=== PATIENT | female | born 1960 | race Caucasian/White ===

== ENCOUNTER 2017-06-18 18:35 | Inpatient (IN) | payer OTHER ==
[~2017-06-18] VITALS: Ht 167.6 cm; Wt 150.3 kg
--- NOTE | ~2017-06-18 | PR ---
[place], [place] PROGRESS NOTE NAME: GRECIA WANG UNIT #: [id number] ROOM: 506 DOCTOR: ELSA BETH MD BIRTHDATE: [birth year] DOS: 06/23/2017 SUBJECTIVE: The patient was seen in followup of acute kidney injury. She is doing well overall, hopeful to be discharged. White blood cell count remains elevated, but stable at 14,000. Her creatinine has come down to 1.71 and stable overall from the last couple of days. She is eating and drinking well. OBJECTIVE: VITAL SIGNS: Reviewed, 130/80, 18, 66, sat 97.4. GENERAL: Awake, alert and oriented, morbidly obese, no acute distress. LUNGS: Decreased breath sounds. ABDOMEN: Soft, nontender. EXTREMITIES: 1+ lower extremity edema. Overall stable. LABORATORY DIAGNOSTIC: Reviewed as above. ASSESSMENT AND PLAN: Acute kidney injury, likely secondary to prerenal factors and NSAID use, continue to hold all NSAIDs indefinitely, hold any DIONISIO inhibitors and ARBs for now, continue as needed Lasix upon discharge. Hold for any signs and symptoms of volume depletion. 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 Continue allopurinol for history of gout. Overall, it is okay to stay on the current dose, monitor labs as an outpatient by PCP and follow up with us in the office if there is no further improvement in renal function. She is stable for discharge from a renal standpoint. ELSA BETH MD CM:PNTRANS [phone] ELSA BETH MD 06/23/17 230 interface
--- NOTE | ~2017-06-18 | CON ---
[place], [place] REPORT OF CONSULTATION NAME: GRECIA WANG UNIT #: [id number] ROOM: [facility] DOCTOR: NATO SERRANO MD BIRTHDATE: [birth year] DOS: 06/19/2017 REASON FOR CONSULTATION: Dyspnea. HISTORY OF PRESENT ILLNESS: The patient is a 56-year-old woman who denies any previous history of heart disease. She does have a history of anxiety and panic attacks. She states that she was evaluated several years ago by Dr. Reza for panic attacks and dyspnea. Nothing was found to the patient's knowledge. There is an echocardiogram available from 07/18/2016 which showed mild left atrial enlargement, but normal left ventricular size, wall motion and systolic function, ejection fraction 60% and no valve abnormalities. The patient states that she was in her normal state of health until 3 days ago. She tripped over a rug, but denied having any significant injury. Two days ago, she noticed that she developed dyspnea, which was brand new. Just walking a short distance would make her very dyspneic. She denied any pleuritic pain, cough, orthopnea or peripheral edema. Yesterday, the dyspnea worsened and therefore she came to the Emergency Room. In the ER, she was noted to have an elevated D-dimer level. She was also noted to be in acute renal failure. Troponin levels were mildly elevated at 0.094 on admission and rising gradually to 0.208. Because of the elevation in troponin, cardiology was asked to see her. The patient denies any chest pain at this time. She denies any pleuritic pain. PAST HISTORY: Includes: 1. Congenital cataract with vision deficits. The patient states that she did undergo bilateral eye surgeries as a young child. Her vision has been restored to a degree. 2. Morbid obesity. 3. Remote history of cigarette abuse. 4. Type 2 diabetes mellitus. 5. Hypertension. 6. Gout. 7. Migraine headaches. 8. Vitamin D deficiency. 9. History of hernia repair. 10. History of tubal ligation. MEDICATIONS PRIOR TO ADMISSION: Allopurinol 300 mg daily, aspirin 81 mg daily, vitamin D3 2000 units daily, furosemide 40 mg daily, Vistaril 25 mg 2 capsules at bedtime, Meloxicam 7.5 mg daily, metformin 1000 mg at bedtime, metoprolol 50 mg at bedtime, montelukast 10 mg at bedtime, phentermine 37.5 mg daily and Topamax 200 mg at bedtime. ALLERGIES: The patient lists an allergy to CODEINE. REVIEW OF SYSTEMS: The patient denies diplopia, but states that she can only see out of one eye at a time. She does have limited vision. She mostly uses her right eye. She denies focal weakness or lightheadedness. She denies nausea [place], [place] REPORT OF CONSULTATION NAME: GRECIA WANG UNIT #: [id number] ROOM: [facility] DOCTOR: NATO SERRANO MD BIRTHDATE: [birth year] or vomiting. She denies hemoptysis or hematemesis. She denies fevers, chills, sweats or recent weight change. She denies cough. She denies any pleuritic pain. She does have dyspnea as noted above. She denies any change in bowel or bladder habits. She denies any bleeding from the urine or stools. She has a very large abdomen, which has not changed recently. She states that she does get some mild ankle edema on occasion. She does have limited activities at home. The remainder of the review of systems is negative except as noted above. SOCIAL HISTORY: The patient has a fiance. She was a smoker, but quit many years ago. She does not consume alcohol or illegal drugs. PHYSICAL EXAMINATION: GENERAL: The patient is an overweight white female who is awake, alert and oriented. VITAL SIGNS: Pulse is 94 and regular, blood pressure is 124/78. She is afebrile. She weighs 148.3 kilograms with a body mass index of 52.8. HEENT: The patient is normocephalic, atraumatic. She does have scarring around her eyes. Her right pupil is elongated in a vertical direction. She does have vertical nystagmus bilaterally. Oral mucosa is moist. Tongue is midline. NECK: Supple. She has no jugular distention or hepatojugular reflux. Carotids are full. I heard no bruits. LUNGS: Respirations are unlabored. Her chest has decreased breath sounds at the bases. There are no wheezes or rales. She has no presacral edema or chest wall tenderness. HEART: Has a regular rhythm with distant tones. She has a fourth heart sound, but no third heart sound or murmur. The PMI is not displaced. She has no precordial heave, lift or thrill. ABDOMEN: Obese, but otherwise benign, without masses, organomegaly or bruits. EXTREMITIES: Showed 1+ edema bilaterally. She does have chronic stasis changes of the skin of her ankles. Pedal pulses are easily palpated bilaterally. She had no Homans sign and no palpable cords. I reviewed her electrocardiogram. It shows sinus rhythm with poor precordial R-wave progression and nonspecific ST and T-wave changes. No acute ST elevations were seen. IMPRESSION: 1. Acute shortness of breath, etiology to be determined. 2. Mild elevation in cardiac troponin. The pattern is not consistent with an acute myocardial event and suggests that the patient may have a noncardiac cause for the troponin elevation, such as a myocardial injury from demand ischemia or possibly from acute right heart injury. 3. Morbid obesity. 4. Diabetes. 5. Acute renal injury. PLAN: Based on her presentation, elevated D-dimer, and mild elevation in troponin, pulmonary emboli are very high on the list of differential diagnoses. The patient has been fully anticoagulated. A V/Q scan is scheduled since she did suffer an acute renal injury. Lower extremity venous ultrasound is also [place], [place] REPORT OF CONSULTATION NAME: GRECIA WANG UNIT #: [id number] ROOM: [facility] DOCTOR: NATO SERRANO MD BIRTHDATE: [birth year] pending. I will be obtaining an echocardiogram to look at right heart strain as well as left ventricular wall motion and systolic function. Further recommendations will depend upon the results of all these studies, but for now, I agree with full heparin anticoagulation. We will follow her with her other physicians. I thank the hospitalist physicians for asking our advice regarding her care. NATO SERRANO MD CM:CONSTR:REPORT OF CONSULTATION 1131 06/19/17 1223 interface
--- NOTE | ~2017-06-18 | EKG ---
[place], [place] ELECTROCARDIOGRAM REPORT NAME: GRECIA WANG UNIT #: [id number] ROOM: 506 DOCTOR: STACEY LOWE MD BIRTHDATE: [birth year] DOS: 06/18/2017 TIME: 19:17:27 RATE AND RHYTHM: Sinus rhythm at 89 beats per minute. MA interval 172 milliseconds, QRS duration 107 milliseconds, corrected QT interval 453 milliseconds. QRS axis is -33. IMPRESSION: Sinus rhythm, atrial premature complexes noted, low voltage in the precordial leads. Left axis deviation. The patient possibly has pulmonary embolism and is being treated for that. Dr. Keene recommended anticoagulation for 3 months. The patient also has poor R-wave progression. STACEY LOWE MD CM:EKGRPT:ELECTROCARDIOGRAM REPORT [id number] STACEY LOWE MD
--- NOTE | ~2017-06-18 | PR ---
[place], [place] PROGRESS NOTE NAME: GRECIA WANG [facility] #: [id number] UNIT #: [id number] ROOM: 506 DOCTOR: NATO SERRANO MD BIRTHDATE: [birth year] DOS: SUBJECTIVE: The patient was seen today at her bedside for followup of her recent dyspnea and presumed pulmonary emboli. She is a 56-year-old woman with a history of morbid obesity, who presented with acute shortness of breath. Her cardiac biomarkers were found to be mildly elevated. The pattern was not consistent with an acute myocardial event and her peak troponin was 0.208. A subsequent troponin has dropped to 0.048. She did give a history of a recent fall and did have bilateral lower extremity edema, although venous ultrasound study was negative for DVT. Her lung scan was read as low probability, but when I looked at the images that were quite abnormal with patchy uptake of the radionuclide on both ventilation and perfusion studies. I think that this study must be considered to be nondiagnostic. Clinically, she did have findings suggesting a pulmonary embolism and she improved rapidly with anticoagulation. She has been placed on Xarelto and is tolerating it well. PHYSICAL EXAMINATION: VITAL SIGNS: Today, her pulse is 86 and regular, blood pressure of 133/77. She is afebrile. NECK: Supple. She has no jugular distention. Carotids are full. LUNGS: Respirations are unlabored. Her chest is clear to auscultation and percussion. HEART: Has a regular rhythm with an S4 gallop. ABDOMEN: Obese, but otherwise benign. EXTREMITIES: Showed trace edema, improved from admission. IMPRESSION: 1. Acute shortness of breath, improving. 2. Mild elevation in cardiac troponin. 3. Morbid obesity. 4. Diabetes. 5. Acute renal injury -- improving. 6. Probable pulmonary embolism. PLAN: Based on her presentation, I think that pulmonary embolism is the most likely diagnosis and I do not believe that her ventilation perfusion lung scan rules this out. I therefore recommend that she be treated with a direct oral anticoagulant (rivaroxaban) for 3 months and then reassessed. She will be monitored in the hospital for another 48 hours and then discharge. We will see her as an outpatient several weeks after discharge. I thank Dr. Fernandez for asking our advice regarding management of this patient. [place], [place] PROGRESS NOTE NAME: GRECIA WANG UNIT #: [id number] ROOM: 506 DOCTOR: NATO SERRANO MD BIRTHDATE: [birth year] NATO SERRANO MD CM:PNTRANS [id number] NATO SERRANO MD 06/21/17 225 interface
--- NOTE | ~2017-06-18 | PR ---
[place], [place] PROGRESS NOTE NAME: GRECIA WANG UNIT #: [id number] ROOM: 506 DOCTOR: ELSA BETH MD BIRTHDATE: [birth year] DOS: 06/20/2017 NEPHROLOGY PROGRESS NOTE REASON FOR FOLLOWUP: Acute kidney injury. SUBJECTIVE: The patient is doing well. She is still drinking tea though. She is afebrile, remains in the ICU. There is consideration for pulmonary embolism, though V/Q scan was negative. They are treating her as if she did have one. OBJECTIVE: VITAL SIGNS: Temperature 97.5, pulse 90, respiratory rate 24, blood pressure 142/81, pulse ox 95% on 3 liters nasal cannula. GENERAL: She is awake, alert and oriented, no acute distress, pleasant mood and affect, morbidly obese, lying in bed comfortably. HEAD AND NECK: Sclerae are anicteric. Oropharynx is clear. Extraocular muscles are not intact. She has nystagmus and very poor acuity. LUNGS: Decreased breath sounds bilaterally. CARDIOVASCULAR: Regular rate. No audible rub. ABDOMEN: Obese, soft, nontender. EXTREMITIES: Without cyanosis or clubbing. There is trace edema present. LABORATORY DATA AND DIAGNOSTICS: INR 1.0. Troponin 0.048. White blood cell count 8.5, hemoglobin 13.7, platelets 271. Sodium 141, potassium 4.1, chloride 111, bicarbonate 23, BUN 26, creatinine 1.73, down from 1.97 and 2.10, glucose 193, calcium 8.6. Urine culture is negative preliminarily. The echo and V/Q scans were reviewed. There is a renal ultrasound which showed right kidney of 10.4 cm with a cortical thinning and echotexture increase. No hydronephrosis, no stones and no cysts. The left kidney measures only 7.3 cm, again with increased echotexture, no hydronephrosis, but a single stone located in the mid portion measuring 10 mm. There is no cyst. The bladder was partially distended. No mention of postvoid residuals otherwise. Lower extremity Dopplers were negative for DVT bilaterally. ASSESSMENT AND PLAN: Acute kidney injury. This is likely in the context of NSAID use, prerenal factors. She needs to discontinue her NSAIDs indefinitely. Her Lasix has been held. I recommend continued water intake with some lemon and citric acid, discontinuation of ice tea and oxalate rich products. She does not have any evidence of proteinuria despite her diabetes and most likely some chronic kidney disease may be a result of ischemic or nephropathy and may be perhaps a solitary functioning right kidney with her left-sided atrophy more so than the right. Continue to hold any DIONISIO inhibitors and ARBs for now. I do not think that she needs one acutely nor probably in the future. She is on allopurinol for history of gout, and if renal function is improving, the dose can continue and if not she may need a dose adjustment. Her volume and hypertension is otherwise acceptably controlled. If started on Xarelto, monitor renal function. We will follow. [place], [place] PROGRESS NOTE NAME: GRECIA WANG UNIT #: [id number] ROOM: [facility] DOCTOR: ELSA BETH MD BIRTHDATE: [birth year] ELSA BETH MD CM:PNTRANS [id number] ELSA BETH MD 06/21/17 0406 interface
--- NOTE | ~2017-06-18 | PR ---
[place], [place] PROGRESS NOTE [id number] UNIT #: [id number] ROOM: 506 DOCTOR: NATO SERRANO MD BIRTHDATE: [birth year] DOS: 06/22/2017 CARDIOLOGY FOLLOWUP SUBJECTIVE: The patient seen today at her bedside for followup of her acute dyspnea and presumed pulmonary embolism. The patient tells me that she is improving daily. She denies any chest pain. She remains on oxygen. PHYSICAL EXAMINATION: VITAL SIGNS: On exam today, her pulse is 60 and regular, blood pressure is 123/69. She is afebrile, pulse oximetry is 96%. She weighs 150.8 kg and has a body mass index of 53.6. HEENT: Normocephalic, atraumatic. Extraocular muscles are intact. Sclerae are clear. Pupils are round and reactive to light. Oral mucosa is moist. Tongue is midline. NECK: Supple. She has no jugular distention or hepatojugular reflux. LUNGS: Respirations are unlabored. Her chest is clear to auscultation and percussion. HEART: Has a regular rhythm with an S4 gallop. ABDOMEN: Soft and obese, but otherwise benign. EXTREMITIES: Show trace edema bilaterally. IMPRESSION: 1. Acute dyspnea, improved. 2. Mild elevation in cardiac troponin. This pattern is consistent with the presumed diagnosis of pulmonary embolism. 3. Morbid obesity. 4. Diabetes mellitus. 5. Acute renal injury, improving. 6. "Low probability" lung scan. My review of the lung scan shows that it is not a normal study, but has considerable abnormalities of both the ventilation and perfusion images. Given her body habitus, history of a recent fall, elevated troponin level, acute dyspnea and respiratory failure, etc., I think that the most likely diagnosis is still pulmonary embolism. Unfortunately, this cannot be confirmed, but given the gravity of diagnosis, it should be treated empirically. PLAN: I recommend that the patient be treated with an oral anticoagulant for 3 months. She should be followed closely after the anticoagulant is done, and if her symptoms recur, then lifelong anticoagulation would probably be indicated at that time. Hopefully, at that point, her renal functions would have improved to the point where we would document whether or not she truly did have pulmonary emboli. I thank Dr. Fernandez for asking our advice regarding her care. [place], [place] PROGRESS NOTE NAME: GRECIA WANG UNIT #: [id number] ROOM: 506 DOCTOR: NATO SERRANO MD BIRTHDATE: [birth year] NATO SERRANO MD CM:PNTRANS [id number] NATO SERRANO MD 06/22/17 2158 interface
--- NOTE | ~2017-06-18 | CON ---
[place], [place] REPORT OF CONSULTATION NAME: GRECIA WANG UNIT #: [id number] ROOM: [facility] DOCTOR: ELSA BETH MD BIRTHDATE: [birth year] DOS: 06/19/2017 HISTORY OF PRESENT ILLNESS: The patient is a very pleasant 56-year-old woman seen in renal consultation for acute kidney injury. She presented to the Emergency Department with a complaint of shortness of breath that had been worsening over the past 2 days, some cramping in the lower extremities. She is being ruled out for PE and DVT. She was given aspirin and DuoNeb in the ER. She has a history of congenital cataract and legally blind. She had long surgeries as a child. She has diabetes, high blood pressure, gout, migraines, vitamin D deficiency. She does not drink very much water. She was noted to have some nephrolithiasis without hydronephrosis on a CT of the chest, which extended into the kidneys. It appears that she was on metformin, Meloxicam at home along with Lasix. She is morbidly obese and does report in general doing okay and doing all of her activities of daily living on her own. She states she is feeling well right now, still is periodically short of breath. She is sitting upright in a chair in the ICU. She has been given normal saline in the Emergency Department. Her laboratories briefly when she presented showed creatinine of 2.1 and then was to 1.97 this morning. Electrolytes were unremarkable. She had an A1c fairly well controlled at 7.0. Troponin was 0.09 and has been climbing to 0.208. Cardiology has been consulted. She has vitamin D deficiency with level of 14.2. Thyroid function studies were normal. Urinalysis yesterday showed cloudy yellow urine, negative for blood, protein or nitrites, epithelial cells contaminated this, 3+ bacteria was noted. She had slight leukocytosis to 12-13,000. Hemoglobin was stable. Blood gas showed slight hypoxia. She did not seem to have lactic acid drawn. Phosphorus was slightly elevated at 5.2 as well. In review of her past laboratories, she had creatinine of 1.1, 1.2 and 1.3 respectively in September 2008, December 2013 and June 2015. She has not had a past renal ultrasound performed. REVIEW OF SYSTEMS: As per the HPI, otherwise all systems reviewed and negative. PAST MEDICAL HISTORY: As above. PAST SURGICAL HISTORY: Eye surgery, hernia repair, tubal ligation. SOCIAL HISTORY: Nonsmoker, nondrinker. She lives at home. She does drink a fair amount of and sometimes johny, former smoker. FAMILY HISTORY: Positive for the congenital cataracts, diabetes, hypertension. ALLERGIES: Reported allergy to CODEINE. HOME MEDICATIONS: Allopurinol, aspirin, vitamin D, Lasix, Vistaril, Meloxicam, metformin, Lopressor, Singulair, Adipex and Topamax. PHYSICAL EXAMINATION: VITAL SIGNS: Blood pressures are in the 100s-150s, currently 124/78, temperature is afebrile, heart rate is 94, respiratory rate 24, pulse ox 92-94% on 3 liters nasal cannula. [place], [place] REPORT OF CONSULTATION NAME: GRECIA WANG UNIT #: [id number] ROOM: [facility] DOCTOR: ELSA BETH MD BIRTHDATE: [birth year] GENERAL: She is morbidly obese, older appearing than stated age female sitting in bed. HEAD AND NECK: Sclerae are anicteric. She has a surgical pupil on the right that looks like a cat's eye and she has some nystagmus, dilated pupil slightly on the left. The acuity is poor. Hearing is grossly intact. No significant JVD, but sitting in chair. No bruits. LUNGS: Some decreased breath sounds secondary to habitus. No audible rales or wheeze. CARDIOVASCULAR: Regular rate. No audible rub. ABDOMEN: Obese, soft, nontender. No CVA tenderness. EXTREMITIES: Lower extremities have 1-2+ lower extremity edema, seems to be fairly symmetric in nature. SKIN: Without diffuse rashes or breakdowns. There are some stasis changes mildly in lower extremities. NEUROLOGIC: The gross motor function is intact and symmetric. Gross sensation appears intact as well. LABORATORY AND DIAGNOSTIC DATA: She is on a heparin drip. PTT is 98.1. Sodium 142, potassium 3.6, chloride 108, bicarb 28, BUN 29, creatinine 1.97. A1c is 7. Calcium is 8, phosphorus 5.2, magnesium 2.3. Troponin 0.208. Cholesterol 160, LDL 100, HDL 34. B12 greater than 2000 and vitamin D 14.2. Folate 12.6. TSH 2.2, free T4 1.07. Urinalysis as above, negative for protein or blood. Albumin was 3.5. AST, ALT normal. Bilirubin normal. CT of the chest showed clear lungs without consolidation, interstitial disease or suspicious nodules. The heart was normal in size without pericardial effusion. Normal lymph nodes, mild coronary calcifications. No pleural effusion, thickening or pneumothorax. Airways were patent. The gallbladder seemed to have some sludge or possible contrast. There was a 5 mm stone in the left kidney and a 3 mm stone in the right kidney without hydronephrosis, but there was some bilateral renal atrophy noted. Again, this was a dedicated chest CT, not of abdomen. Cultures are pending. ASSESSMENT AND PLAN: Acute kidney injury versus progressive chronic kidney disease. Baseline creatinine did seem to be elevated 2-5 years ago on past analyses or at least baseline of chronic kidney disease 3. The ongoing use of NSAIDs must be stopped. I believe that may be contributing to acute injury as well as progressive of chronic disease with use of Lasix as well. She does not seem to drink very much in terms of fluid, especially water. She has some chronic venous insufficiency and edema, but overall blood pressures are acceptably controlled. I would continue to hold any DIONISIO inhibitors and ARBs for now. She does not have any evidence of proteinuria despite her diabetes and most likely some chronic kidney disease is a result of ischemic nephropathy, some possible hypertensive nephrosclerosis versus other possibilities as well. Her hypertension is acceptably controlled. I will stop her IV fluids at this time. She does have mild hyperphosphatemia and vitamin D deficiency. We will replace those and monitor serial laboratories moving forward. A renal ultrasound will be done to monitor for this and she does have a history of gout and is on allopurinol. The dose may need to be reduced perhaps if renal function does not improve further. [place], [place] REPORT OF CONSULTATION NAME: GRECIA WANG UNIT #: [id number] ROOM: [facility] DOCTOR: ELSA BETH MD BIRTHDATE: [birth year] Thank you very much for the kind consultation. I will continue to follow. ELSA BETH MD CM:CONSTR:REPORT OF CONSULTATION 1212 06/19/17 1255 interface
--- NOTE | ~2017-06-18 | PR ---
[place], [place] PROGRESS NOTE NAME: GRECIA WANG UNIT #: [id number] ROOM: 506 DOCTOR: BALBIR SERRANO MD BIRTHDATE: [birth year] DOS: FAMILY PHYSICIAN: Dr. Fernandez. SUBJECTIVE: The patient presented with subsequent to a fall with sudden onset of shortness of breath. Clinical pressures appeared to be consistent with a pulmonary emboli, even though the V/Q scan was consistent with low probability. From the Cardiology point of view, the patient today appears she is sitting up in bed, does not appear in distress. She is reporting significant improvement on her shortness of breath. No chest pain, improved shortness of breath. No symptomatic palpitation. OBJECTIVE: VITAL SIGNS: The patient's blood pressure 130/80, heart rate 66, respiratory rate of 18, temperature 97.4. NECK: Good upstroke, no bruit. HEART: S1, S2 with no rub. LUNGS: Decreased air movement, but no wheezing or rales. ABDOMEN: Morbidly obese with soft, nontender, present bowel sounds. LOWER EXTREMITIES: Mild lymphedema. LABORATORY DATA: White count 14.5, hemoglobin 12.5, BUN 36, creatinine 1.7, GFR is 31 percent. ASSESSMENT AND PLAN: Status post presentation with acute shortness of breath following a fall in a patient who is morbidly obese with no complaint of chest pain and overall normal EKG. The patient's elevated troponin could be due to a possible subclinical pulmonary emboli, even though clinical pressure is completely consistent with that. The V/Q scan was reported to be low probability, even though simple preliminary reading does not appear to be consistent with that. Anyway, the patient currently on blood thinner and probably should be continued for 3 months. Any change in patient's symptoms, she was encouraged to call us back immediately. The patient can be discharged home from the cardiac point of view should there be any complaint problems. The patient is scheduled followup with Dr. Keene. [place], [place] PROGRESS NOTE NAME: GRECIA WANG UNIT #: [id number] ROOM: 506 DOCTOR: BALBIR SERRANO MD BIRTHDATE: [birth year] BALBIR SERRANO MD CM:[place] 1139 BALBIR SERRANO MD 06/23/17 1719 interface
[~2017-06-18 18:35] MED LIST: ATORVASTATIN CA10 M1 PO; BRIN20TA PO; GLUCOPHAGE500 MG PO; LASIX40 MG PO; LISINOPRIL40 MG PO; LOPRESSOR50 M1 PO; LOW DOSE ASPIRI81 MG PO; MELOXICAM7.5 MG PO; METFORMIN HCL500 MG PO; MOTRIN800 MG PO; NEURONTIN300 MG PO; PERCOCET 325 MG1 TA6 PO; TOBREX OPHTH S2.5 ML OPH; TOPAMAX100 M1 PO; TOPIRAMATE100 M2 PO
[2017-06-18 18:44] VITALS: BP 150/96
[2017-06-18 18:55] VITALS: BP 108/80
[2017-06-18 19:20] VITALS: BP 108/80
[2017-06-18 19:20] LABS: BASO # 0.1 10*3/uL (0.0-0.1); EOS # 0.7 10*3/uL (0.0-0.4); EOS % 5.7 % (1.0-4.0); HEMOGLOBIN 14.5 g/dl (12.0-16.0); LYMPH % 33.1 % (27.0-41.0); MEAN CELL VOLUME 94.1 fl (81.0-99.0); MEAN CORPUSCULAR HGB 29.7 pg (27.0-31.0); MEAN CORPUSCULAR HGB CONC 31.5 g/dl (33.0-37.0); MEAN PLATELET VOLUME 9.9 fl (9.6-12.3); MONO # 1.1 10*3/uL (0.1-1.0); MONO % 8.9 % (3.0-9.0); NEUT # 6.1 10*3/uL (2.3-7.9); PLATELET COUNT AUTOMATED 268 10*3/uL (130-400); RED BLOOD COUNT 4.89 10*6/uL (4.10-5.10); RED CELL DISTRI WIDTH 15.5 % (0-14.5)
[2017-06-18 19:37] LABS: ALBUMIN 3.5 gm/dl (3.1-4.5); BILIRUBIN, TOTAL 0.6 mg/dl (0.2-1.0); POTASSIUM 4.1 mmol/L (3.5-5.1); TOTAL PROTEIN 7.6 gm/dL (6.4-8.2)
[2017-06-18 19:42] LABS: TROPONIN I 0.094 ng/ml (<0.045)
[2017-06-18 19:49] LABS: ABG BASE EXCESS -2.2 mmol/L (-2.0-2.0); ABG CO2 CONTENT 22.6 mmol/L (23-27); ABG HCO3 21.5 mmol/l (22-26); ABG TEMPERATURE 98.8 F (98.0-99.0); ARTERIAL BLOOD GAS PH 7.397 (7.35-7.45); ARTERIAL BLOOD GAS PO2 56.6 mmHg (80-90)
[2017-06-18 19:50] LABS: INTERNATIONAL NORM RATIO 1.1 (2.0-3.5)
[2017-06-18 20:51] VITALS: BP 106/74
[2017-06-18 21:23] LABS: BILIRUBIN 1+ (NEGATIVE); BLOOD NEGATIVE (NEGATIVE); CLARITY SL CLOUDY (CLEAR); COLOR YELLOW (YELLOW); GLUCOSE NEGATIVE (NEGATIVE); KETONE NEGATIVE (NEGATIVE); LEUKO ESTERASE TRACE (NEGATIVE); NITRITE NEGATIVE (NEGATIVE); PROTEIN NEGATIVE (NEGATIVE); UROBILINOGEN 0.2 E.U./dl (0.2-1.0)
[2017-06-18 21:37] LABS: BACTERIA 3+; EPITHELIAL CELLS 16-20; URINE REFLEX COMMENT YES (NO)
[2017-06-18 22:00] VITALS: BP 137/77
[2017-06-18] MEDS ORDERED: SINGULAIR10 M1 PO (22:15)
[2017-06-18] MEDS ORDERED: VITAMIN D-32000 UNIT PO (22:15)
[2017-06-18] MEDS ORDERED: ADIPEX-P37.5 MG PO (22:16)
[2017-06-18] MEDS ORDERED: VISTARIL25 M2 PO (22:16)
[2017-06-18] MEDS ORDERED: ALLOPURINOL300 MG PO (22:17)
[2017-06-19] VITALS: BP 133/76
[2017-06-19 05:09] VITALS: BP 124/78
[2017-06-19 05:38] LABS: FREE T4 1.07 ng/dl (0.76-1.46); MAGNESIUM 2.3 mg/dL (1.5-2.1); PHOSPHOROUS 5.2 mg/dL (2.5-4.9); POTASSIUM 3.6 mmol/L (3.5-5.1)
[2017-06-19 05:45] LABS: THYROID STIM HORMONE (HS) 2.21 uIU/ml (0.358-4.75)
[2017-06-19 05:54] LABS: BASO # 0.1 10*3/uL (0.0-0.1); BASO % 0.7 % (0.0-1.0); EOS # 0.7 10*3/uL (0.0-0.4); EOS % 5.3 % (1.0-4.0); HEMATOCRIT 41.8 % (37.0-47.0); HEMOGLOBIN 13.1 g/dl (12.0-16.0); LYMPH # 4.9 10*3/uL (1.3-4.4); LYMPH % 36.5 % (27.0-41.0); MEAN CELL VOLUME 93.9 fl (81.0-99.0); MEAN CORPUSCULAR HGB 29.4 pg (27.0-31.0); MEAN CORPUSCULAR HGB CONC 31.3 g/dl (33.0-37.0); MEAN PLATELET VOLUME 10.3 fl (9.6-12.3); MONO # 1.2 10*3/uL (0.1-1.0); MONO % 9.3 % (3.0-9.0); NEUT # 6.4 10*3/uL (2.3-7.9); PLATELET COUNT AUTOMATED 249 10*3/uL (130-400); RED BLOOD COUNT 4.45 10*6/uL (4.10-5.10); RED CELL DISTRI WIDTH 15.2 % (0-14.5); WHITE BLOOD COUNT 13.4 10*3/uL (4.8-10.8)
[2017-06-19 06:30] LABS: INTERNATIONAL NORM RATIO 1.1 (2.0-3.5); PROTHROMBIN TIME 11.4 SECONDS (8.9-12.2)
[2017-06-19 07:01] LABS: FOLIC ACID 12.64 ng/mL (>5.38); VITAMIN D, 25-HYDROXY 14.2 ng/mL (30-100)
[2017-06-19 08:00] VITALS: BP 145/95
[2017-06-19 12:00] VITALS: BP 134/87
[2017-06-19 16:00] VITALS: BP 156/90
[2017-06-19 20:00] VITALS: BP 115/81
[2017-06-20] VITALS: BP 127/79
[2017-06-20 04:00] VITALS: BP 128/81
[2017-06-20 05:55] LABS: BASO % 0.4 % (0.0-1.0); HEMATOCRIT 42.4 % (37.0-47.0); HEMOGLOBIN 13.7 g/dl (12.0-16.0); LYMPH # 1.3 10*3/uL (1.3-4.4); MEAN CELL VOLUME 94.4 fl (81.0-99.0); MEAN CORPUSCULAR HGB 30.5 pg (27.0-31.0); MEAN CORPUSCULAR HGB CONC 32.3 g/dl (33.0-37.0); MEAN PLATELET VOLUME 10.2 fl (9.6-12.3); MONO # 0.1 10*3/uL (0.1-1.0); MONO % 0.6 % (3.0-9.0); NEUT # 7.1 10*3/uL (2.3-7.9); NEUT % 83.5 % (47.0-73.0); PLATELET COUNT AUTOMATED 271 10*3/uL (130-400); RED BLOOD COUNT 4.49 10*6/uL (4.10-5.10); RED CELL DISTRI WIDTH 15.6 % (0-14.5); WHITE BLOOD COUNT 8.5 10*3/uL (4.8-10.8)
[2017-06-20 06:13] LABS: POTASSIUM 4.1 mmol/L (3.5-5.1)
[2017-06-20 08:00] VITALS: BP 141/98
[2017-06-20 12:00] VITALS: BP 142/81
[2017-06-20 16:00] VITALS: BP 142/81
[2017-06-20 20:00] VITALS: BP 138/78
[2017-06-21] VITALS: BP 129/104
[2017-06-21 04:00] VITALS: BP 122/76
[2017-06-21 07:10] LABS: BASO % 0.1 % (0.0-1.0); HEMATOCRIT 41.6 % (37.0-47.0); HEMOGLOBIN 13.2 g/dl (12.0-16.0); IG # 0.1 10*3/uL (0.0-0.1); LYMPH % 13.5 % (27.0-41.0); MEAN CELL VOLUME 95.6 fl (81.0-99.0); MEAN CORPUSCULAR HGB 30.3 pg (27.0-31.0); MEAN CORPUSCULAR HGB CONC 31.7 g/dl (33.0-37.0); MEAN PLATELET VOLUME 10.2 fl (9.6-12.3); MONO # 0.5 10*3/uL (0.1-1.0); MONO % 3.2 % (3.0-9.0); NEUT # 12.4 10*3/uL (2.3-7.9); NEUT % 82.7 % (47.0-73.0); NUCLEATED RED BLOOD CELL 0.1 % (0.0-0.0); PLATELET COUNT AUTOMATED 272 10*3/uL (130-400); RED BLOOD COUNT 4.35 10*6/uL (4.10-5.10); RED CELL DISTRI WIDTH 15.6 % (0-14.5)
[2017-06-21 07:46] LABS: PHOSPHOROUS 4.3 mg/dL (2.5-4.9); POTASSIUM 4.2 mmol/L (3.5-5.1)
[2017-06-21 08:00] VITALS: BP 142/84
[2017-06-21 16:00] VITALS: BP 133/77
[2017-06-21 21:03] VITALS: BP 137/70
[2017-06-22] VITALS: BP 154/88
[2017-06-22 06:46] LABS: BASO % 0.2 % (0.0-1.0); EOS % 0.1 % (1.0-4.0); HEMOGLOBIN 12.5 g/dl (12.0-16.0); IG # 0.1 10*3/uL (0.0-0.1); LYMPH # 4.4 10*3/uL (1.3-4.4); MEAN CELL VOLUME 95.2 fl (81.0-99.0); MEAN CORPUSCULAR HGB 29.8 pg (27.0-31.0); MEAN CORPUSCULAR HGB CONC 31.3 g/dl (33.0-37.0); MEAN PLATELET VOLUME 10.3 fl (9.6-12.3); MONO # 1.2 10*3/uL (0.1-1.0); MONO % 8.4 % (3.0-9.0); NEUT % 60.8 % (47.0-73.0); PLATELET COUNT AUTOMATED 248 10*3/uL (130-400); RED CELL DISTRI WIDTH 15.9 % (0-14.5); WHITE BLOOD COUNT 14.8 10*3/uL (4.8-10.8)
[2017-06-22 08:00] VITALS: BP 123/69
[2017-06-22 16:00] VITALS: BP 128/77
[2017-06-23] VITALS: BP 132/73
[2017-06-23 06:01] LABS: HEMATOCRIT 40.8 % (37.0-47.0); HEMOGLOBIN 12.5 g/dl (12.0-16.0); MEAN CELL VOLUME 95.3 fl (81.0-99.0); MEAN CORPUSCULAR HGB 29.2 pg (27.0-31.0); MEAN CORPUSCULAR HGB CONC 30.6 g/dl (33.0-37.0); MEAN PLATELET VOLUME 10.3 fl (9.6-12.3); PLATELET COUNT AUTOMATED 252 10*3/uL (130-400); RED BLOOD COUNT 4.28 10*6/uL (4.10-5.10); RED CELL DISTRI WIDTH 15.8 % (0-14.5); WHITE BLOOD COUNT 14.5 10*3/uL (4.8-10.8)
[2017-06-23 06:10] LABS: MAGNESIUM 2.1 mg/dL (1.5-2.1); PHOSPHOROUS 5.1 mg/dL (2.5-4.9); POTASSIUM 4.1 mmol/L (3.5-5.1)
[2017-06-23 06:55] LABS: BASOPHIL # 0.1 10*3/uL (0-0.1); BASOPHILS 1 % (0-1); EOSINOPHIL # 0.3 10*3/uL (0-0.4); EOSINOPHILS 2 % (1-4); LYMPHOCYTE # 5.8 10*3/uL (1.3-4.4); MONOCYTE # 0.4 10*3/uL (0.1-1.0); NEUTROPHIL # 7.8 10*3/uL (2.3-7.9); NEUTROPHILS 54 % (47-73); PLATELET SUFFICIENCY NORMAL (NORMAL); TOTAL CELLS COUNTED 100 #CELLS
[2017-06-23 08:00] VITALS: BP 130/80
[2017-06-23] MEDS ORDERED: OXYGEN NAS (12:06)
[2017-06-23] MEDS ORDERED: XARE15TA PO (14:41)
[2017-06-23] MEDS ORDERED: GLUCOTROL5 MG PO (14:41)
[2017-06-23] MEDS ORDERED: XARE20MG PO (14:42)
== END 2017-06-23 16:10 | disposition home or self-care (01) | DRG 682 ==
LOC: ED 18:35 → EDHOLD 21:03 → 5E 21:03 → ICCU 21:03 → 5E 06-20 16:41
PROVIDERS: Family Medicine; Internal Medicine; Internal Medicine Nephrology; Physician Assistant
DX: N17.0 Acute kidney failure with tubular necrosis (principal); J96.01 Acute respiratory failure with hypoxia; I26.99 Other pulmonary embolism without acute cor pulmonale; I82.4Y9 Acute embolism and thrombosis of unspecified deep veins of unspecified proximal lower extremity; R65.10 Systemic inflammatory response syndrome (SIRS) of non-infectious origin without acute organ dysfunction; E11.65 Type 2 diabetes mellitus with hyperglycemia; I24.8 Other forms of acute ischemic heart disease; Z68.43 Body mass index [BMI] 50.0-59.9, adult; E87.8 Other disorders of electrolyte and fluid balance, not elsewhere classified; E66.01 Morbid (severe) obesity due to excess calories; N26.1 Atrophy of kidney (terminal); M1A.9XX0 Chronic gout, unspecified, without tophus (tophi); N20.0 Calculus of kidney; R82.71 Bacteriuria; E55.9 Vitamin D deficiency, unspecified; K80.80 Other cholelithiasis without obstruction; I10 Essential (primary) hypertension; G47.30 Sleep apnea, unspecified; G43.909 Migraine, unspecified, not intractable, without status migrainosus; I87.2 Venous insufficiency (chronic) (peripheral); Z88.6 Allergy status to analgesic agent; Z98.51 Tubal ligation status; Z82.49 Family history of ischemic heart disease and other diseases of the circulatory system; Z83.3 Family history of diabetes mellitus; Z80.9 Family history of malignant neoplasm, unspecified; Z87.891 Personal history of nicotine dependence; Z79.82 Long term (current) use of aspirin; Z79.84 Long term (current) use of oral hypoglycemic drugs; Z79.899 Other long term (current) drug therapy; Z91.81 History of falling

== ENCOUNTER → 2017-08-30 | Outpatient (CLI) | payer OTHER ==
[~2017-08-30] MED LIST changes: +ADIPEX-P37.5 MG PO; +ALLOPURINOL300 MG PO; +GLUCOTROL5 MG PO; +OXYGEN NAS; +SINGULAIR10 M1 PO; +VISTARIL25 M2 PO; +VITAMIN D-32000 UNIT PO; +XARE15TA PO; +XARE20MG PO
[2017-08-30 13:57] LABS: ALBUMIN 3.1 gm/dl (3.1-4.5); CREATININE 1.9 mg/dL (0.55-1.02); PHOSPHOROUS 3.9 mg/dL (2.5-4.9); POTASSIUM 3.5 mmol/L (3.5-5.1); URIC ACID 6.5 mg/dL (2.6-6.0)
== END | disposition home or self-care (01) ==
LOC: LAB 12:25
PROVIDERS: Internal Medicine
DX: N18.9 Chronic kidney disease, unspecified (principal); M10.9 Gout, unspecified

== ENCOUNTER → 2017-12-16 | Outpatient (CLI) | payer OTHER | END | disposition home or self-care (01) | LOC: LAB 15:52 | DX: J06.9 Acute upper respiratory infection, unspecified (principal) ==

== ENCOUNTER → 2017-12-27 | Outpatient (CLI) | payer OTHER ==
[2017-12-27 12:27] LABS: BILIRUBIN NEGATIVE (NEGATIVE); BLOOD NEGATIVE (NEGATIVE); CLARITY SL CLOUDY (CLEAR); COLOR YELLOW (YELLOW); GLUCOSE NEGATIVE (NEGATIVE); KETONE NEGATIVE (NEGATIVE); LEUKO ESTERASE NEGATIVE (NEGATIVE); NITRITE NEGATIVE (NEGATIVE); SPECIFIC GRAVITY 1.015 (1.005-1.030); UROBILINOGEN 0.2 E.U./dl (0.2-1.0)
[2017-12-27 12:28] LABS: BASO # 0.1 10*3/uL (0.0-0.1); BASO % 0.8 % (0.0-1.0); EOS # 0.5 10*3/uL (0.0-0.4); EOS % 4.2 % (1.0-4.0); HEMATOCRIT 43.6 % (37.0-47.0); HEMOGLOBIN 13.7 g/dl (12.0-16.0); LYMPH # 4.5 10*3/uL (1.3-4.4); LYMPH % 37.9 % (27.0-41.0); MEAN CELL VOLUME 95.4 fl (81.0-99.0); MEAN CORPUSCULAR HGB CONC 31.4 g/dl (33.0-37.0); MEAN PLATELET VOLUME 9.6 fl (9.6-12.3); MONO % 8.9 % (3.0-9.0); NEUT # 5.6 10*3/uL (2.3-7.9); NEUT % 47.9 % (47.0-73.0); PLATELET COUNT AUTOMATED 360 10*3/uL (130-400); RED BLOOD COUNT 4.57 10*6/uL (4.10-5.10); RED CELL DISTRI WIDTH 15.2 % (0-14.5); WHITE BLOOD COUNT 11.7 10*3/uL (4.8-10.8)
[2017-12-27 12:42] LABS: BACTERIA 1+; EPITHELIAL CELLS 25-30; HYALINE CAST 16-20
[2017-12-27 12:53] LABS: ALBUMIN 3.1 gm/dl (3.1-4.5); CREATININE 1.67 mg/dL (0.55-1.02); PHOSPHOROUS 2.6 mg/dL (2.5-4.9); POTASSIUM 3.9 mmol/L (3.5-5.1)
[2017-12-27 13:35] LABS: VITAMIN D, 25-HYDROXY 19.7 ng/mL (30-100)
[2017-12-27 13:36] LABS: FERRITIN 158.2 ng/mL (10.0-291.0); PTH INTACT 201.8 pg/mL (14.0-72.0)
== END | disposition home or self-care (01) ==
LOC: LAB 11:45
PROVIDERS: Internal Medicine Nephrology
DX: N18.3 Chronic kidney disease, stage 3 (moderate) (principal); D63.1 Anemia in chronic kidney disease; N25.81 Secondary hyperparathyroidism of renal origin

== ENCOUNTER → 2018-06-25 | Outpatient (CLI) | payer OTHER ==
[2018-06-25 16:38] LABS: BASO # 0.1 10*3/uL (0.0-0.1); BASO % 0.7 % (0.0-1.0); EOS # 0.3 10*3/uL (0.0-0.4); EOS % 2.1 % (1.0-4.0); HEMATOCRIT 46.3 % (37.0-47.0); HEMOGLOBIN 14.4 g/dl (12.0-16.0); LYMPH # 4.5 10*3/uL (1.3-4.4); LYMPH % 36.6 % (27.0-41.0); MEAN CELL VOLUME 96.1 fl (81.0-99.0); MEAN CORPUSCULAR HGB 29.9 pg (27.0-31.0); MEAN CORPUSCULAR HGB CONC 31.1 g/dl (33.0-37.0); MEAN PLATELET VOLUME 10.5 fl (9.6-12.3); MONO # 0.9 10*3/uL (0.1-1.0); MONO % 7.5 % (3.0-9.0); NEUT # 6.5 10*3/uL (2.3-7.9); NEUT % 52.9 % (47.0-73.0); PLATELET COUNT AUTOMATED 255 10*3/uL (130-400); RED BLOOD COUNT 4.82 10*6/uL (4.10-5.10); RED CELL DISTRI WIDTH 15.2 % (0-14.5); WHITE BLOOD COUNT 12.4 10*3/uL (4.8-10.8)
[2018-06-25 16:41] LABS: BILIRUBIN NEGATIVE (NEGATIVE); BLOOD NEGATIVE (NEGATIVE); CLARITY SL CLOUDY (CLEAR); COLOR YELLOW (YELLOW); GLUCOSE NEGATIVE (NEGATIVE); KETONE NEGATIVE (NEGATIVE); LEUKO ESTERASE NEGATIVE (NEGATIVE); NITRITE NEGATIVE (NEGATIVE); UROBILINOGEN 0.2 E.U./dl (0.2-1.0)
[2018-06-25 17:11] LABS: ALBUMIN 3.4 gm/dl (3.1-4.5); CREATININE 1.63 mg/dL (0.55-1.02); PHOSPHOROUS 3.6 mg/dL (2.5-4.9); POTASSIUM 3.5 mmol/L (3.5-5.1)
[2018-06-25 17:15] LABS: BACTERIA 3+; EPITHELIAL CELLS 41-50; WBC 0-2 wbc/hpf (0-5)
[2018-06-25 18:37] LABS: FERRITIN 92.9 ng/mL (10.0-291.0); VITAMIN D, 25-HYDROXY 29.2 ng/mL (30-100)
== END | disposition home or self-care (01) ==
LOC: LAB 16:09
PROVIDERS: Internal Medicine Nephrology
DX: D63.1 Anemia in chronic kidney disease (principal); N25.81 Secondary hyperparathyroidism of renal origin; N18.3 Chronic kidney disease, stage 3 (moderate)

== ENCOUNTER → 2019-01-25 | Outpatient (CLI) | payer OTHER | END | disposition home or self-care (01) | LOC: US 09:34 | DX: R13.10 Dysphagia, unspecified (principal); R22.1 Localized swelling, mass and lump, neck ==

== ENCOUNTER → 2019-03-10 | Outpatient (CLI) | payer OTHER ==
[2019-03-10 09:16] LABS: CREATININE 1.6 mg/dL (0.55-1.02)
== END | disposition home or self-care (01) ==
LOC: CT 01:24 → LAB 01:24 → CT 09:00
PROVIDERS: Radiology Diagnostic Radiology
DX: K80.80 Other cholelithiasis without obstruction (principal)

== ENCOUNTER → 2019-07-07 | Outpatient (CLI) | payer OTHER | END | disposition home or self-care (01) | LOC: CARD 01:44 | DX: R94.31 Abnormal electrocardiogram [ECG] [EKG] (principal); I51.7 Cardiomegaly ==

== ENCOUNTER 2019-12-21 18:28 | Inpatient (IN) | payer OTHER ==
[~2019-12-21] VITALS: Ht 167.6 cm; Wt 162.4 kg
[2019-12-21 18:49] VITALS: BP 117/42
[2019-12-21 20:06] LABS: MEAN CELL VOLUME 75.8 fl (81.0-99.0); MEAN CORPUSCULAR HGB CONC 26.4 g/dl (33.0-37.0); MEAN PLATELET VOLUME 8.7 fl (9.6-12.3); NUCLEATED RED BLOOD CELL 0.2 % (0.0-0.0); PLATELET COUNT AUTOMATED 592 10*3/uL (130-400); RED CELL DISTRI WIDTH 19.1 % (0-14.5); WHITE BLOOD COUNT 13.4 10*3/uL (4.8-10.8)
[2019-12-21 20:07] LABS: HEMOGLOBIN 6.6 g/dl (12.0-16.0)
[2019-12-21 20:11] LABS: ACT PARTIAL THROMBO TIME 28.1 SECONDS (20.0-32.1); INTERNATIONAL NORM RATIO 1.1 (2.0-3.5)
[2019-12-21 20:13] LABS: ALBUMIN 2.9 gm/dl (3.1-4.5); ALKALINE PHOSPHATASE 137 U/L (45-117); BUN 15 mg/dl (7-24); CHLORIDE 105 mmol/L (98-107); CREATININE 1.62 mg/dL (0.55-1.02); LIPASE 86 U/L (73-393); POTASSIUM 4.3 mmol/L (3.5-5.1); SGOT/AST 23 IU/L (3-35); SGPT/ALT 18 U/L (12-78); SODIUM 140 mmol/L (136-145); TOTAL PROTEIN 7.4 gm/dL (6.4-8.2)
[2019-12-21 20:14] LABS: TROPONIN I < 0.015 ng/ml (<0.045)
[2019-12-21 20:24] LABS: TOTAL CELLS COUNTED 100 #CELLS
[2019-12-21 20:25] LABS: MICROCYTOSIS SLIGHT; PLATELET SUFFICIENCY NORMAL (NORMAL)
--- NOTE | 2019-12-21 20:25 | NUR ---
PT REFUSES IV AT THIS TIME. WANTS TO WAIT UNTIL LAB RESULTS ARE BACK AND BLOOD IS ORDERED.
[2019-12-21 20:27] LABS: OVALOCYTES FEW; TARGET CELLS FEW
[2019-12-21 22:45] VITALS: BP 113/62
[2019-12-21 23:18] VITALS: BP 103/45
--- NOTE | 2019-12-21 23:20 | NUR ---
LUNGS CLEAR TO [facility]US[facility]
[2019-12-21 23:40] VITALS: BP 98/45
--- NOTE | 2019-12-21 23:40 | NUR ---
A 59, admitted to 5E, under the services of STACEY Moreira MD with a diagnosis of Severe Anemia. Chief complaint is was sent to hospital by Dr. Fernandez office for Hg 6.0 per pt. . Patient arrived via bed from ER. Monitor applied. Initial assessment completed. Vital signs taken and recorded. STACEY MOREIRA MD notified of admission to the 5E unit. Orders received. See assessment for past medical history, medications and allergies. Patient and/or family oriented to unit. [facility] visitation policy reviewed. Clothing/patient valuable form completed. PATIENT LEGALLY BLIND. ALERT AND ORIENTED X3. BLOOD INFUSING ON ADMISSION FROM ER INTO RIGHT ANTECUBITAL WITHOUT DIFFICULTY VIA PUMP. INCREASE INFUSION TO 125ML/HR PATIENT TOLERATING BLOOD WELL. PT. ONLY C/O SLIGHT SOB BUT OTHERWISE STATES SHE FEELS FINE. PT. ALREADY HAD THE FLU SHOT IN AUGUST 2019. FAMILIA MCPHERSON J
[2019-12-21 23:58] VITALS: BP 97/45
[2019-12-22] VITALS (14 sets, daily range): BP systolic 106–141; BP diastolic 44–75
--- NOTE | 2019-12-22 | NUR ---
PT. STATED "DR. DAY WILL NO PUT ME OUT, IT SCARES ME TO ".
[2019-12-22] MEDS ORDERED: LASIX40 MG PO (00:57)
[2019-12-22] MEDS ORDERED: JANUVIA100 MG PO (00:58)
[2019-12-22] MEDS ORDERED: SENOKOT8.6 MG PO (00:59)
--- NOTE | 2019-12-22 01:40 | NUR ---
NOTIFIED DR. FABIAN HOME MEDICATIONS RECONCILLED.
--- NOTE | 2019-12-22 06:50 | NUR ---
called dr. hand and notified him of consult.
[2019-12-22 06:54] LABS: HEMATOCRIT 24.8 % (37.0-47.0); MEAN CELL VOLUME 76.3 fl (81.0-99.0); MEAN CORPUSCULAR HGB 20.9 pg (27.0-31.0); MEAN CORPUSCULAR HGB CONC 27.4 g/dl (33.0-37.0); MEAN PLATELET VOLUME 8.8 fl (9.6-12.3); NUCLEATED RED BLOOD CELL 0.3 % (0.0-0.0); PLATELET COUNT AUTOMATED 563 10*3/uL (130-400); RED BLOOD COUNT 3.25 10*6/uL (4.10-5.10); RED CELL DISTRI WIDTH 19.1 % (0-14.5); WHITE BLOOD COUNT 13.9 10*3/uL (4.8-10.8)
[2019-12-22 07:02] LABS: HEMOGLOBIN 6.8 g/dl (12.0-16.0)
--- NOTE | 2019-12-22 07:05 | NUR ---
CALLED DR. DAY AND NOTIFIED HIM OF PT. Hg 6.8 ORDERS RECEIVED.
[2019-12-22 07:22] LABS: ALBUMIN 2.6 gm/dl (3.1-4.5); PHOSPHOROUS 3.6 mg/dL (2.5-4.9); POTASSIUM 4.1 mmol/L (3.5-5.1)
[2019-12-22 07:32] LABS: CREATININE 1.53 mg/dL (0.55-1.02); FREE T4 1.03 ng/dl (0.76-1.46); THYROID STIM HORMONE (HS) 3.59 uIU/ml (0.358-4.75); TOTAL PROTEIN 6.8 gm/dL (6.4-8.2)
[2019-12-22 07:39] LABS: BASOPHILS 2 % (0-1); MICROCYTOSIS MODERATE; PLATELET SUFFICIENCY HIGH (NORMAL); POLYCHROMASIA SLIGHT; SPHEROCYTES FEW; TOTAL CELLS COUNTED 100 #CELLS
[2019-12-22 08:27] LABS: VITAMIN D, 25-HYDROXY 34.8 ng/mL (30-100)
--- NOTE | 2019-12-22 12:50 | NUR ---
1 UNIT OF [facility] INFUSED PER ORDER, PT TOLERATED WITHOUT DIFFICULTY, NO REACTIONS NOTED, VITALS STABLE, PT ALERT ORIENTED SITTING UP IN BED AT THIS TIME
--- NOTE | 2019-12-22 13:36 | NUR ---
Contract Post Office Clerk in to talk to patient. Patient states lives at HOME with ALONE. There are NONE steps in the home. Physician: MYNOR Pharmacy: [facility] [place] health services: NONE Patient's level of ADLs: INDEPENDENT Patient has working utilities: YES DME: MICKEY Follow-up physician's appointment after d/c: PERFERS TO MAKE OWN APPOINTMENT AFTER DISCHARGE Does patient want to access PORTAL?: NO Discharge plan PT LIVES AT HOME ALONE BUT HAS A FIANCE THAT IS THERE EVERYDAY TO HELP IF SHE NEEDS IT. DENIES SHE WILL HAVE ANY NEEDS ON DISCHARGE. WILL RETURN HOME WITH NO NEW NEEDS. WILL CONTINUE TO FOLLOW. STATES SHE WILL HAVE A RIDE HOME. DERREK WELLS
[2019-12-22] MEDS ORDERED: LORAZEPAM0.5 MG PO (20:15)
--- NOTE | 2019-12-22 20:32 | NUR ---
CALLED DR. LINK AND NOTIFIED HIM OF PT. WANTING HER ATIVAN ORDERED FOR HS. ORDER RECEIVED.
--- NOTE | 2019-12-22 21:19 | NUR ---
PT. REFUSED TO TAKE LOPRESSOR STATED " I'LL WAIT UNTIL MY BLOOD PRESSURE COMES UP A LITTLE MORE."
--- NOTE | 2019-12-22 22:00 | NUR ---
ATIVAN HELPING WITH ANXIETY PER PT.
--- NOTE | 2019-12-22 23:09 | NUR ---
24 HR chart check completed.
[2019-12-23] VITALS: BP 155/78
--- NOTE | 2019-12-23 03:20 | NUR ---
PATIENT SLEEPING. NO ACUTE DISTRESS NOTED.
[2019-12-23 06:35] LABS: BASO # 0.1 10*3/uL (0.0-0.1); BASO % 0.4 % (0.0-1.0); EOS # 0.6 10*3/uL (0.0-0.4); EOS % 3.8 % (1.0-4.0); HEMOGLOBIN 7.6 g/dl (12.0-16.0); LYMPH # 3.1 10*3/uL (1.3-4.4); MEAN CELL VOLUME 77.1 fl (81.0-99.0); MEAN CORPUSCULAR HGB 20.9 pg (27.0-31.0); MEAN CORPUSCULAR HGB CONC 27.1 g/dl (33.0-37.0); MONO # 1.4 10*3/uL (0.1-1.0); MONO % 9.5 % (3.0-9.0); NEUT # 9.1 10*3/uL (2.3-7.9); NEUT % 63.5 % (47.0-73.0); NUCLEATED RED BLOOD CELL 0.1 10*3/uL (0.0-0.0); NUCLEATED RED BLOOD CELL 0.9 % (0.0-0.0); PLATELET COUNT AUTOMATED 583 10*3/uL (130-400); RED BLOOD COUNT 3.63 10*6/uL (4.10-5.10); RED CELL DISTRI WIDTH 19.7 % (0-14.5); WHITE BLOOD COUNT 14.3 10*3/uL (4.8-10.8)
--- NOTE | 2019-12-23 06:56 | NUR ---
CALLED DR. DAY AND NOTIFIED HIM OF H&H AND NO ORDERS RECEIVED.
[2019-12-23 06:59] LABS: ALBUMIN 2.8 gm/dl (3.1-4.5); CREATININE 1.6 mg/dL (0.55-1.02); POTASSIUM 3.7 mmol/L (3.5-5.1); TOTAL PROTEIN 6.9 gm/dL (6.4-8.2)
[2019-12-23 07:12] LABS: ACT PARTIAL THROMBO TIME 25.4 SECONDS (20.0-32.1)
[2019-12-23 08:00] VITALS: BP 122/60
--- NOTE | 2019-12-23 09:00 | NUR ---
[place] Coiling Machine Setter in to see patient. Discussed home needs and she would like to see if someone could do some light cleaning. Explained that is normally a private pay and she agreed and has reached out to a couple of people before. They hourly charge was between $22 and $30. Discussed [employer] and information given to her. Discussed her insurance and she agreed to reach out to them. When medically stable she will be discharged to home. She states her fiance will provide transportation on discharge.
[2019-12-23 12:00] VITALS: BP 120/56
[2019-12-23 16:00] VITALS: BP 108/50
[2019-12-23 18:10] LABS: CREATININE 1.69 mg/dL (0.55-1.02); POTASSIUM 4.1 mmol/L (3.5-5.1)
[2019-12-23 20:00] VITALS: BP 116/63
--- NOTE | 2019-12-23 20:50 | NUR ---
SPOKE WITH DR. FRANCO ABOUT PATIENT WANTING TO HAVE SOME NYSTATIN POWDER FOR UNDER BREAST. PATIENT STATED "I'M STARTING TO HAVE ITCHING UNDER MY BREAST AND GROIN AREA. I GET THAT RASH THERE AND IT'S FEELING LIKE THAT". ORDER RECEIVED FOR NYSTATIN.
--- NOTE | 2019-12-23 21:52 | NUR ---
ATIVAN GIVEN PER ORDER FOR ANXIETY.
--- NOTE | 2019-12-23 22:40 | NUR ---
ATIVAN HELPING WITH ANXIETY PER PT.
--- NOTE | 2019-12-23 23:01 | NUR ---
24 HR chart check completed.
[2019-12-24] VITALS (7 sets, daily range): BP systolic 122–144; BP diastolic 56–72
[2019-12-24 07:06] LABS: BASO # 0.1 10*3/uL (0.0-0.1); BASO % 0.4 % (0.0-1.0); EOS # 0.7 10*3/uL (0.0-0.4); EOS % 4.1 % (1.0-4.0); HEMOGLOBIN 7.6 g/dl (12.0-16.0); LYMPH # 3.3 10*3/uL (1.3-4.4); LYMPH % 20.4 % (27.0-41.0); MEAN CELL VOLUME 79.3 fl (81.0-99.0); MEAN CORPUSCULAR HGB 21.5 pg (27.0-31.0); MEAN CORPUSCULAR HGB CONC 27.1 g/dl (33.0-37.0); MEAN PLATELET VOLUME 8.8 fl (9.6-12.3); MONO # 1.5 10*3/uL (0.1-1.0); MONO % 8.9 % (3.0-9.0); NEUT # 10.6 10*3/uL (2.3-7.9); NEUT % 65.5 % (47.0-73.0); NUCLEATED RED BLOOD CELL 0.1 10*3/uL (0.0-0.0); NUCLEATED RED BLOOD CELL 0.9 % (0.0-0.0); PLATELET COUNT AUTOMATED 546 10*3/uL (130-400); RED BLOOD COUNT 3.53 10*6/uL (4.10-5.10); RED CELL DISTRI WIDTH 20.8 % (0-14.5); WHITE BLOOD COUNT 16.2 10*3/uL (4.8-10.8)
[2019-12-24 07:16] LABS: ACT PARTIAL THROMBO TIME 26.5 SECONDS (20.0-32.1)
--- NOTE | 2019-12-24 08:30 | NUR ---
Social Service Assistant in to see patient. No new needs or request at this time. She denies any home needs. When medically stable she will be discharged to home.
--- NOTE | 2019-12-24 09:58 | NUR ---
Nutritional Support Services Note: Discussing with pt 1800cal diabetic diet and foods high in iron. Pt has Dx of severe anemia. Discussed foods to incorporate into diet to increase iron absorption. Pt doesn't like most foods high in iron. Encouraged healthy eating. Discussed proper portion sizes. Will follow if needed. Encouraged follow up if needed. Yashira Rodriguez Rdn Ld
--- NOTE | 2019-12-24 18:00 | NUR ---
PT REFUSING LASIX AT THIS TIME. STATES "I DONT WANT TO BE GOING TO THE BATHROOM WITH THIS BLOOD RUNNING"
--- NOTE | 2019-12-24 18:45 | NUR ---
PT PULLED OUT IV DURING BLOOD INFUSING. WILL CALL DOCTOR AT THIS TIME.
--- NOTE | 2019-12-24 19:00 | NUR ---
DR. LOWE NOTIFIED OF DIFFICULTY GIVING BLOOD. NO ORDERS AT THIS TIME.
--- NOTE | 2019-12-24 20:00 | NUR ---
PATIENT DENIES ANY NEW NEEDS AT THIS TIME. PATIENT HOPING TO GO HOME FRIDAY. BLOOD INFUSING WITH NO PROBLEMS. PATIENT LEFT WITH CALL LIGHT IN REACH.
--- NOTE | 2019-12-24 20:50 | NUR ---
PATIENT REQUESTED AN ATIVAN TO HELP WITH HER NERVES. WAS GIVEN. WILL MONITOR AND REASSESS.
[2019-12-25] VITALS: BP 126/46
--- NOTE | 2019-12-25 00:41 | NUR ---
24 HR chart check completed.
[2019-12-25 06:49] LABS: HEMATOCRIT 29.8 % (37.0-47.0); HEMOGLOBIN 8.2 g/dl (12.0-16.0); MEAN CELL VOLUME 80.1 fl (81.0-99.0); MEAN CORPUSCULAR HGB CONC 27.5 g/dl (33.0-37.0); MEAN PLATELET VOLUME 8.8 fl (9.6-12.3); NUCLEATED RED BLOOD CELL 0.2 10*3/uL (0.0-0.0); NUCLEATED RED BLOOD CELL 1.5 % (0.0-0.0); PLATELET COUNT AUTOMATED 538 10*3/uL (130-400); RED BLOOD COUNT 3.72 10*6/uL (4.10-5.10); RED CELL DISTRI WIDTH 21.3 % (0-14.5); WHITE BLOOD COUNT 15.5 10*3/uL (4.8-10.8)
[2019-12-25 06:58] LABS: ACT PARTIAL THROMBO TIME 29.3 SECONDS (20.0-32.1)
[2019-12-25 07:11] LABS: CREATININE 1.67 mg/dL (0.55-1.02)
[2019-12-25 07:42] LABS: TOTAL CELLS COUNTED 100 #CELLS
[2019-12-25 07:51] LABS: OVALOCYTES FEW; PLATELET SUFFICIENCY HIGH (NORMAL); POLYCHROMASIA SLIGHT; STOMATOCYTE FEW; TARGET CELLS FEW
[2019-12-25 07:52] LABS: MICROCYTOSIS SLIGHT; SCHISTOCYTES FEW
[2019-12-25 08:00] VITALS: BP 111/59
[2019-12-25] MEDS ORDERED: FERROUS FUMARA324 MG PO (11:09)
--- NOTE | 2019-12-25 11:39 | NUR ---
PT DISCHARGED AT THIS TIME. IV REMOVED AND PRESSURE DRESSING APPLIED. HEART MONITOR RETURNED TO FLOOR. VERBALIZED UNDERSTANDING OF DISCHARGE INSTRUCTIONS.
== END 2019-12-25 11:39 | disposition home or self-care (01) | DRG 253 ==
LOC: ED 18:28 → EDHOLD 21:24 → 5E 21:24
PROVIDERS: Hospitalist; Internal Medicine; Internal Medicine Gastroenterology; Nurse Practitioner Family; ADMIT Internal Medicine
PROC: 30233N1 Transfusion of Nonautologous Red Blood Cells into Peripheral Vein, Percutaneous Approach (ICD-10-PCS; principal; 2019-12-22)
DX: K92.2 Gastrointestinal hemorrhage, unspecified (principal); D62 Acute posthemorrhagic anemia; D47.3 Essential (hemorrhagic) thrombocythemia; N17.0 Acute kidney failure with tubular necrosis; N18.3 Chronic kidney disease, stage 3 (moderate); E87.2 Acidosis; E83.41 Hypermagnesemia; E44.0 Moderate protein-calorie malnutrition; F50.89 Other specified eating disorder; M10.9 Gout, unspecified; G43.909 Migraine, unspecified, not intractable, without status migrainosus; E66.01 Morbid (severe) obesity due to excess calories; J44.9 Chronic obstructive pulmonary disease, unspecified; R19.5 Other fecal abnormalities; Z53.29 Procedure and treatment not carried out because of patient's decision for other reasons; E11.22 Type 2 diabetes mellitus with diabetic chronic kidney disease; E11.65 Type 2 diabetes mellitus with hyperglycemia; I12.9 Hypertensive chronic kidney disease with stage 1 through stage 4 chronic kidney disease, or unspecified chronic kidney disease; Z68.43 Body mass index [BMI] 50.0-59.9, adult; Z88.5 Allergy status to narcotic agent; Z79.899 Other long term (current) drug therapy; Z87.891 Personal history of nicotine dependence; Z98.51 Tubal ligation status; Z83.3 Family history of diabetes mellitus; Z82.49 Family history of ischemic heart disease and other diseases of the circulatory system; Z80.8 Family history of malignant neoplasm of other organs or systems; Z86.711 Personal history of pulmonary embolism; Z86.718 Personal history of other venous thrombosis and embolism; Z79.01 Long term (current) use of anticoagulants

== ENCOUNTER → 2020-01-06 | Outpatient (CLI) | payer OTHER ==
[~2020-01-06] MED LIST changes: +FERROUS FUMARA324 MG PO; +JANUVIA100 MG PO; +LORAZEPAM0.5 MG PO; +SENOKOT8.6 MG PO
[2020-01-06 09:54] LABS: BASO # 0.1 10*3/uL (0.0-0.1); BASO % 0.6 % (0.0-1.0); EOS # 0.5 10*3/uL (0.0-0.4); EOS % 4.5 % (1.0-4.0); HEMATOCRIT 39.4 % (37.0-47.0); HEMOGLOBIN 10.5 g/dl (12.0-16.0); LYMPH # 3.2 10*3/uL (1.3-4.4); LYMPH % 27.2 % (27.0-41.0); MEAN CELL VOLUME 87.9 fl (81.0-99.0); MEAN CORPUSCULAR HGB 23.4 pg (27.0-31.0); MEAN CORPUSCULAR HGB CONC 26.6 g/dl (33.0-37.0); MEAN PLATELET VOLUME 8.8 fl (9.6-12.3); MONO # 1.2 10*3/uL (0.1-1.0); MONO % 9.8 % (3.0-9.0); NEUT # 6.8 10*3/uL (2.3-7.9); NEUT % 57.4 % (47.0-73.0); PLATELET COUNT AUTOMATED 527 10*3/uL (130-400); RED BLOOD COUNT 4.48 10*6/uL (4.10-5.10); RED CELL DISTRI WIDTH 27.4 % (0-14.5); WHITE BLOOD COUNT 11.8 10*3/uL (4.8-10.8)
== END | disposition home or self-care (01) ==
LOC: LAB 00:23 → US 10:30
PROVIDERS: Internal Medicine
DX: D50.0 Iron deficiency anemia secondary to blood loss (chronic) (principal); Z91.89 Other specified personal risk factors, not elsewhere classified

== ENCOUNTER 2020-06-25 18:52 | Inpatient (IN) | payer OTHER ==
[~2020-06-25] VITALS: Ht 167.6 cm; Wt 187.1 kg
--- NOTE | 2020-06-25 20:06 | NUR ---
IV UNSUCCESSFUL AT THIS TIME. WILL REQUEST ANOTHER NURSE TO TRY.
--- NOTE | 2020-06-25 20:09 | NUR ---
PT DENIES WOUNDS AT TIME OF ASSESSMENT. WILL RECHECK IF PT IS ADMITTED.
[2020-06-25 20:23] LABS: BASO % 0.4 % (0.0-1.0); EOS # 0.3 10*3/uL (0.0-0.4); EOS % 2.4 % (1.0-4.0); HEMATOCRIT 41.1 % (37.0-47.0); LYMPH # 2.4 10*3/uL (1.3-4.4); LYMPH % 22.9 % (27.0-41.0); MEAN CELL VOLUME 102.5 fl (81.0-99.0); MEAN CORPUSCULAR HGB 27.4 pg (27.0-31.0); MEAN CORPUSCULAR HGB CONC 26.8 g/dl (33.0-37.0); MEAN PLATELET VOLUME 9.5 fl (9.6-12.3); MONO # 1.2 10*3/uL (0.1-1.0); MONO % 11.6 % (3.0-9.0); NEUT # 6.4 10*3/uL (2.3-7.9); NEUT % 62.2 % (47.0-73.0); NUCLEATED RED BLOOD CELL 0.1 10*3/uL (0.0-0.0); NUCLEATED RED BLOOD CELL 0.7 % (0.0-0.0); PLATELET COUNT AUTOMATED 382 10*3/uL (130-400); RED BLOOD COUNT 4.01 10*6/uL (4.10-5.10); RED CELL DISTRI WIDTH 18.5 % (0-14.5); WHITE BLOOD COUNT 10.3 10*3/uL (4.8-10.8)
[2020-06-25 20:45] LABS: ALBUMIN 2.5 gm/dl (3.1-4.5); ALKALINE PHOSPHATASE 116 U/L (45-117); BUN 25 mg/dl (7-24); CHLORIDE 101 mmol/L (98-107); CREATININE 1.83 mg/dL (0.55-1.02); POTASSIUM 4.6 mmol/L (3.5-5.1); SGOT/AST 28 IU/L (3-35); SGPT/ALT 21 U/L (12-78); SODIUM 143 mmol/L (136-145); TOTAL PROTEIN 7.1 gm/dL (6.4-8.2)
[2020-06-25 21:02] LABS: TROPONIN I < 0.015 ng/ml (<0.045)
[2020-06-25 21:09] LABS: INTERNATIONAL NORM RATIO 1.2 (2.0-3.5)
--- NOTE | 2020-06-25 21:14 | NUR ---
FAMILY CALLED FOR UPDATE. INFORMED THEM THAT DR BOBBY PLANS TO ADMIT THE PT. LEAVING A BAG AT TRIAGE.
--- NOTE | 2020-06-25 22:04 | NUR ---
SUCCESSFUL IV ATTEMPT TO LEFT ARM 22G HEPLOCK. POLICY AND PROCEDURE FOLLOWED. PATIENT TOLERATED WELL.
--- NOTE | 2020-06-25 23:18 | NUR ---
PT CONTINUES TO DENIES WOUNDS AT THIS TIME. "NOT COMFORTABLE" SHOWING ME HER COXYX AREA. NO WOUNDS VISIBLE.
[2020-06-26] VITALS (8 sets, daily range): BP systolic 100–148; BP diastolic 56–91
[2020-06-26] MEDS ORDERED: FERROUS FUMARA324 MG PO (01:15)
[2020-06-26] MEDS ORDERED: LYRICA25 M1 PO (01:17)
[2020-06-26] MEDS ORDERED: TRAD5TAB1 PO (01:17)
[2020-06-26] MEDS ORDERED: VITAMIN D250 MC1 PO (01:18)
[2020-06-26] MEDS ORDERED: B12 ACTIVE1000 MCG PO (01:18)
--- NOTE | 2020-06-26 01:20 | NUR ---
PATIENT WANTS TO BE A FULL CODE NO INTUBATION.
--- NOTE | 2020-06-26 01:29 | NUR ---
PATIENT REFUSED SKIN ASSESSMENT
--- NOTE | 2020-06-26 01:36 | NUR ---
A 59, admitted to 5E, under the services of STACEY Moreira MD with a diagnosis of CHF. Chief complaint is SHORTNESS OF BREATH. Patient arrived via stretcher from ER. Monitor applied. Initial assessment completed. Vital signs taken and recorded. STACEY MOREIRA MD notified of admission to the unit. Orders received. See assessment for past medical history, medications and allergies. Patient and/or family oriented to unit. [address] visitation policy reviewed. Clothing/patient valuable form completed. ADAM VARGAS
--- NOTE | 2020-06-26 01:41 | NUR ---
THIS RN CALLED ER FOR REPORT. REPORT NOT RECIEVED BY LUNG GUN OPERATOR BEFORE ARRIVAL.
--- NOTE | 2020-06-26 02:00 | NUR ---
PATIENT REFUSED TO TAKE JEANS OFF FOR FULL SKIN ASSESSMENT.
--- NOTE | 2020-06-26 02:03 | NUR ---
ORDERS FROM DR LOWE AT THIS TIME
--- NOTE | 2020-06-26 02:09 | NUR ---
DR LOWE STATES TO CONTINUE HOME MEDICATIONS
--- NOTE | 2020-06-26 04:56 | NUR ---
PATIENT RESTING IN BED WITH NO S/S OF DISTRESS. BED IN LOWEST POSITION, CALL LIGHT IN REACH
--- NOTE | 2020-06-26 06:19 | NUR ---
DR CASAS AWARE OF CONSULT. NO ORDERS TAKEN
--- NOTE | 2020-06-26 06:24 | NUR ---
DR ARANA AWARE OF CONSULT. STATES HE WILL SEE THE PATIENT THIS MORNING. NO ORDERS TAKEN
--- NOTE | 2020-06-26 08:36 | NUR ---
REFUSED LAST TROPONIN, DR SALINAS NOTIFIED.
[2020-06-26 09:35] LABS: ABG BASE EXCESS 10.3 mmol/L (-2.0-2.0); ARTERIAL BLOOD GAS PH 7.248 (7.35-7.45)
--- NOTE | 2020-06-26 09:39 | NUR ---
CRITICAL PCO2 95, ELIZABETH, RT TO NOTIFY DR CASAS.
--- NOTE | 2020-06-26 09:46 | NUR ---
CRITICAL ABG RESULTS CALLED TO DR CASAS. NEW ORDERS GIVEN TO PLACE PT. ON BIPAP 18/ BR 12 TITRATE FIO2 TO KEEP SPO2 >= 92%. REPEAT ABG AFTER 2HRS ON BIPAP.
--- NOTE | 2020-06-26 11:36 | NUR ---
DR ARANA IN TO SEE PT. VERBAL ORDERS TAKEN TO INCREASE IV LASIX TO TWICE A DAY, START 40 KDUR BID, AND STRICT I&O'S.
[2020-06-26 12:52] LABS: ABG BASE EXCESS 12.7 mmol/L (-2.0-2.0); ARTERIAL BLOOD GAS PH 7.269 (7.35-7.45)
--- NOTE | 2020-06-26 13:18 | NUR ---
SPOKE WITH KEYON IN ICU, STATES HE IS READY FOR THE PT.
--- NOTE | 2020-06-26 13:18 | NUR ---
SPOKE WITH DR GARCIA, STATES HE WANT PATIENT TRANSFERRED TO THE UNIT.
--- NOTE | 2020-06-26 13:42 | NUR ---
PATIENT TRANSFERRED TO UNIT. REPORT GIVEN TO DEANN TA. ALL PERSONAL ITEMS WITH PATIENT.
--- NOTE | 2020-06-26 13:50 | NUR ---
PATIENT RECEIVED IN ICCU BED 1. PATIENT PLACED ON BIPAP 24/10. MUSCLE TWITCHING IN THE ARMS AND LEGS. PATIENT PULSE OX 97% AT THIS TIME. PATIENT IS A&OX3 AND ABLE TO ANSWER QUESTIONS APPROPRIATELY. IN REPORT, I WAS TOLD THAT DR. CASAS WAS AWARE OF PATIENT CONDITION AND PLACED THE ORDER TO TRANSFER THE PATIENT BACK TO THE ICCU.
--- NOTE | 2020-06-26 13:50 | NUR ---
PT TAKEN TO CCU 1, PT PLACED ON BIPAP
--- NOTE | 2020-06-26 15:00 | NUR ---
DR. WINN IN TO SEE PATIENT. PATIENT CARE REVIEWED. NO NEW ORDERS AT THIS TIME.
--- NOTE | 2020-06-26 15:30 | NUR ---
SPOKE WITH DR. CASAS. ORDERS RECEIVED. LOVENOX WILL BE D/C AND PATIENT WILL BE PLACED ON HEPARIN GTT PROTOCOL.
[2020-06-26 15:53] LABS: ALBUMIN 2.3 gm/dl (3.1-4.5); CREATININE 1.68 mg/dL (0.55-1.02); POTASSIUM 5.1 mmol/L (3.5-5.1); TOTAL PROTEIN 6.9 gm/dL (6.4-8.2)
[2020-06-26 16:11] LABS: ABG BASE EXCESS 13.2 mmol/L (-2.0-2.0); ARTERIAL BLOOD GAS PH 7.353 (7.35-7.45)
--- NOTE | 2020-06-26 17:22 | NUR ---
DR. BARRETO AND DR. FRANCO IN TO PL[facility].
--- NOTE | 2020-06-26 19:54 | NUR ---
RN IN TO ASSESS PATIENT AT THIS TIME, PATIENT APPEARS TO BE SLEEPING, HAS EYES CLOSED AND IS WEARING BIPAP. VITAL SIGNS WERE OBTAINED AND ARE WITHIN NORMAL LIMITS. PATIENT AWAKENS TO TACTILE STIMULI AND NODS WHEN ASKED QUESTIONS, IS DROWSY HOWEVER AND DRIFTS BACK TO SLEEP QUICKLY. APPEARS TO BE IN NO ACUTE DISTRESS. DOES EXHIBIT SOME TWITCHING IN THE BUE AND BLE. +3 EDEMA TO BLE. CRACKLES IN THE BILATERAL BASES OF LUNGS AND ALSO VERY DIMINISHED WITH POOR AIR EXCHANGE. PULSE OXIMETER REMAINS ON FINGER- DEMONSTRATES SATURATION OF 99% ON THE 35% FIO2 FROM THE BIPAP. CENTRAL LINE IN THE LEFT IJ APPEARS STABLE, DRESSING C/D/I-HEPARIN GTT INFUSING PER PROTOCOL AND AWAITING NEXT APTT AT 0000. CALL LIGHT IS WITHIN REACH OF THE PATIENT RN WILL CONTINUE TO MONITOR
--- NOTE | 2020-06-26 20:30 | NUR ---
PATIENT ASSISTED TO THE BEDSIDE COMMODE AT THIS TIME. PATIENT WAS REMOVED FROM THE BIPAP AND PLACED ONTO 5LNC, TOLERATED WELL HOWEVER WHEN ATTMEPTING TO GET BACK INTO BED PATIENT BECAME VERY SHORT OF BREATH AND PULSE OXIMETRY DECREASED TO 88-90%, BIPAP WAS REAPPLIED AND IMPORTANCE OF REMAINING ON BIPAP FOR LONG TOLERATED WAS STRESSED TO PATIENT. PATIENT VERBALIZED UNDERSTANDING BUT CONTINUES TO VERBALIZE THAT SHE DOESNT WANT TO BE "HOOKED UP TO [employer]" CALL LIGHT WAS PROVIDED AND TELEVISION WSA TURNED ON PER PATIENT REQUEST. DENIES OTHER NEEDS AT THIS TIME. RN WILL CONTINUE TO MONITOR
--- NOTE | 2020-06-26 20:57 | NUR ---
URINE SPECIMEN COLLECTED AND SENT AT THIS TIME PER DRS ORDERS FOR UA REFLEX TO .
--- NOTE | 2020-06-26 20:58 | NUR ---
SPOKE WITH MITA, RELATION OF PATIENT WHO HAD CALLED IN, PASSCODE WAS PROVIDED. UPDATED ON PLAN OF CARE AND CONDITION OF PATIENT, HE WAS INQUIRING ABOUT WHETHER HE COULD TALK TO PATIENT. INFORMEWD HIM OF HER JUST BEING PLACED BACK ONTO THE BIPAP AFTER GETTING UP AND TO CALL BACK IN THE AM TO SPEAK WITH HER SHE REQUESTS TO SLEEP.
[2020-06-26 21:05] LABS: CLARITY CLEAR (CLEAR); COLOR YELLOW (YELLOW)
--- NOTE | 2020-06-26 21:05 | NUR ---
SPOKE WITH DR OLMOS STATES THAT MLC IS OKAY TO USE AT THIS TIME
[2020-06-26 21:08] LABS: BILIRUBIN NEGATIVE (NEGATIVE); BLOOD NEGATIVE (NEGATIVE); GLUCOSE NEGATIVE (NEGATIVE); KETONE NEGATIVE (NEGATIVE); NITRITE NEGATIVE (NEGATIVE); UROBILINOGEN 0.2 E.U./dl (0.2-1.0)
[2020-06-26 21:09] LABS: LEUKO ESTERASE TRACE (NEGATIVE)
[2020-06-26 21:15] LABS: BACTERIA 3+; EPITHELIAL CELLS 31-40
--- NOTE | 2020-06-26 21:25 | NUR ---
PATIENT MEDICATED WITH ATIVAN PRN PER DRS ORDERS FOR COMPLAINTS OF ANXIETY RELATED TO WEARING THE BIPAP.
[2020-06-27] VITALS: BP 105/59
[2020-06-27 04:00] VITALS: BP 101/48
--- NOTE | 2020-06-27 06:20 | NUR ---
OFF BIPAP AT THIS TIME, 5 LITERS NASAL CANNULA APPLIED. TOLERATING WELL. ASSISTED TO THE BEDSIDE COMMODE AND BACK TO BED, PATIENT HAD SMALL LIQUID BOWEL MOVEMENT. DENIES OTHER COMPLAINTS AT THIS TIME. CALL LIGHT WITHIN REACH. RN WILL CONTINUE TO MONITOR
--- NOTE | 2020-06-27 06:53 | NUR ---
RN TOOK PT OFF BIPAP AT 0620 AM. ABG DRAWEN ON 4LNC
--- NOTE | 2020-06-27 06:54 | NUR ---
RESPIRATORY IN TO OBTAIN ABG THIS MORNING
[2020-06-27 06:58] LABS: BASO % 0.3 % (0.0-1.0); EOS # 0.3 10*3/uL (0.0-0.4); EOS % 2.6 % (1.0-4.0); HEMATOCRIT 37.6 % (37.0-47.0); LYMPH # 2.6 10*3/uL (1.3-4.4); LYMPH % 24.9 % (27.0-41.0); MEAN CELL VOLUME 100.8 fl (81.0-99.0); MEAN CORPUSCULAR HGB 27.6 pg (27.0-31.0); MEAN CORPUSCULAR HGB CONC 27.4 g/dl (33.0-37.0); MEAN PLATELET VOLUME 9.4 fl (9.6-12.3); MONO # 1.1 10*3/uL (0.1-1.0); MONO % 11.1 % (3.0-9.0); NEUT # 6.3 10*3/uL (2.3-7.9); NEUT % 60.8 % (47.0-73.0); NUCLEATED RED BLOOD CELL 0.2 % (0.0-0.0); PLATELET COUNT AUTOMATED 366 10*3/uL (130-400); RED BLOOD COUNT 3.73 10*6/uL (4.10-5.10); RED CELL DISTRI WIDTH 18.1 % (0-14.5); WHITE BLOOD COUNT 10.3 10*3/uL (4.8-10.8)
[2020-06-27 07:18] LABS: ALBUMIN 2.4 gm/dl (3.1-4.5); CREATININE 1.73 mg/dL (0.55-1.02); POTASSIUM 4.9 mmol/L (3.5-5.1); TOTAL PROTEIN 6.9 gm/dL (6.4-8.2)
[2020-06-27 07:20] LABS: ABG BASE EXCESS 10.7 mmol/L (-2.0-2.0); ARTERIAL BLOOD GAS PH 7.341 (7.35-7.45)
--- NOTE | 2020-06-27 07:20 | NUR ---
BREAKFAST ORDERED AT THIS TIME, PATIENT REQUESTING OMELET WITH TOMATOES,GREEN PEPPERS,ONIONS AND CHEESE, BOWL OF OATMEAL, FRUIT CUP, AND A BANANA
--- NOTE | 2020-06-27 07:22 | NUR ---
DR XIE INTO SEE PATIENT
[2020-06-27 08:00] VITALS: BP 104/46
--- NOTE | 2020-06-27 08:06 | NUR ---
message left on dr violetta boyd this am
--- NOTE | 2020-06-27 09:00 | NUR ---
Sumo Wrestler in to talk to patient. Patient states lives at home alone with her friends checking in on her. There are 0 steps in the home. Physician: Dr. David Fernandez Pharmacy: [facility] health services: none Patient's level of ADLs: MINIMAL ASSIST Patient has working utilities: yes DME: cane Follow-up physician's appointment after d/c: she prefers to make her own follow up appt after discharge Does patient want to access PORTAL?: no Discharge plan discussed with patient. She is sitting on the edge of her bed. She lives at home alone with friends checking in on her. She states she has a tow car driver, [employer], that does his and her laundry. She has a clinical assistant come in once a week from [employer] for light housecleaning. Discussed skilled home health care services and she declines. CM will continue to follow for any discharge planning needs. She states she is independent in her ADLs and uses a cane for ambulation. When medically stable she will be discharged to home. She states her tow car driver, [employer], will provide transportation on discharge. MAXIM SILVERIO
--- NOTE | 2020-06-27 09:17 | NUR ---
UP TO RECLINER WITH MINIMAL ASSIST BIPAP BACK ON
[2020-06-27 12:00] VITALS: BP 94/57
--- NOTE | 2020-06-27 13:06 | NUR ---
WOEKN FOR LUNCH, PT HAS BEEN IN RECLINER, SLEEPING WITH BIPAP ON SINCE 9
--- NOTE | 2020-06-27 13:11 | NUR ---
DR WINN IS AWARE OF RENAL CONSULT
[2020-06-27 16:00] VITALS: BP 96/49
[2020-06-27 20:00] VITALS: BP 114/65
--- NOTE | 2020-06-27 22:17 | NUR ---
PT. GIVEN ATIVAN AT 2104 PRIOR TO BIPAP. PT. STATED MINIMALLY EFFECTIVE.
--- NOTE | 2020-06-27 22:33 | NUR ---
PT. SLEEPING, PHENERGAN, OXY, ATIVAN EFFECTIVE. LOMOTIL INEFFECTIVE. DIARRHEA REMAINS.
[2020-06-28] VITALS: BP 126/69
[2020-06-28 06:26] LABS: BASO % 0.2 % (0.0-1.0); EOS # 0.3 10*3/uL (0.0-0.4); EOS % 3.6 % (1.0-4.0); HEMATOCRIT 37.3 % (37.0-47.0); LYMPH # 2.9 10*3/uL (1.3-4.4); LYMPH % 30.5 % (27.0-41.0); MEAN CELL VOLUME 100.8 fl (81.0-99.0); MEAN CORPUSCULAR HGB 27.3 pg (27.0-31.0); MEAN CORPUSCULAR HGB CONC 27.1 g/dl (33.0-37.0); MEAN PLATELET VOLUME 9.3 fl (9.6-12.3); MONO # 1.1 10*3/uL (0.1-1.0); MONO % 11.9 % (3.0-9.0); NEUT # 5.1 10*3/uL (2.3-7.9); NEUT % 53.5 % (47.0-73.0); PLATELET COUNT AUTOMATED 354 10*3/uL (130-400); RED CELL DISTRI WIDTH 17.7 % (0-14.5); WHITE BLOOD COUNT 9.5 10*3/uL (4.8-10.8)
[2020-06-28 06:44] LABS: ALBUMIN 2.4 gm/dl (3.1-4.5); CREATININE 1.76 mg/dL (0.55-1.02); POTASSIUM 4.8 mmol/L (3.5-5.1)
[2020-06-28 08:00] VITALS: BP 105/48
--- NOTE | 2020-06-28 09:00 | NUR ---
CM in to see patient. No new needs or request at this time. Discussed home health care services and she declines. CM will continue to follow for any discharge planning needs. When medically stable she will be discharged to home.
[2020-06-28 16:00] VITALS: BP 113/50
[2020-06-28 17:00] LABS: ABG BASE EXCESS 9.5 mmol/L (-2.0-2.0); ARTERIAL BLOOD GAS PH 7.289 (7.35-7.45)
--- NOTE | 2020-06-28 17:11 | NUR ---
NOTIFIED OF ABG RESULTS. INFORMED PATIENT REFUSED TO WEAR BIPAP. STATED TO ENCOURAGE PATIENT TO WEAR BIPAP MUCH POSSIBLE.
[2020-06-28 20:00] VITALS: BP 114/53
--- NOTE | 2020-06-28 20:01 | NUR ---
PT ASLEEP SITTING UP IN CHAIR. BIPAP IN USE. WILL MONITOR. CALL LIGHT IN REACH.
--- NOTE | 2020-06-28 22:40 | NUR ---
SON CALLED. UPDATED ON PLAN OF CARE.
--- NOTE | 2020-06-28 23:24 | NUR ---
PT TAKEN OFF BIPAP TO EAT SNACK. NASAL CANNULA APPLIED. WILL MONITOR.
--- NOTE | 2020-06-29 00:45 | NUR ---
PT ASSISTED FROM CHAIR TO BED AFTER BATH. NEW BED LINENS PROVIDED. PT REFUSING TO WEAR OUR GOWNS, WILL ONLY WEAR NIGHT GOWN FROM HOME. HOB ELEVATED. BIPAP REAPPLIED WITH PREVIOUS SETTINGS. WILL MONITOR. CALL LIGHT IN REACH.
[2020-06-29 02:00] VITALS: BP 123/71
--- NOTE | 2020-06-29 03:47 | NUR ---
PT TAKEN OFF BIPAP PER REQUEST. O2 APPLIED VIA 4L NC. ICE PROVIDED PER REQUEST. WILL MONITOR. CALL LIGHT IN REACH.
--- NOTE | 2020-06-29 04:04 | NUR ---
RESPIRATORY IN ROOM TO REAPPLY BIPAP. PT REFUSING DESPITE EDUCATION.
--- NOTE | 2020-06-29 06:30 | NUR ---
PT NOW AGREES TO WEAR BIPAP UNTIL BREAKFAST. PT PLACED ON BIPAP WITH PREVIOUS SETTINGS. CONTINUOUS POX IN PLACE. CURRENT POX 97% ON 35% FiO2. RESPIRATORY TO BE NOTIFIED.
[2020-06-29 06:35] LABS: BASO % 0.2 % (0.0-1.0); EOS # 0.4 10*3/uL (0.0-0.4); HEMATOCRIT 36.7 % (37.0-47.0); LYMPH # 2.4 10*3/uL (1.3-4.4); LYMPH % 27.3 % (27.0-41.0); MEAN CELL VOLUME 100.8 fl (81.0-99.0); MEAN CORPUSCULAR HGB 27.5 pg (27.0-31.0); MEAN CORPUSCULAR HGB CONC 27.2 g/dl (33.0-37.0); MEAN PLATELET VOLUME 9.3 fl (9.6-12.3); MONO # 1.1 10*3/uL (0.1-1.0); MONO % 12.3 % (3.0-9.0); NEUT # 4.8 10*3/uL (2.3-7.9); NEUT % 55.7 % (47.0-73.0); PLATELET COUNT AUTOMATED 324 10*3/uL (130-400); RED BLOOD COUNT 3.64 10*6/uL (4.10-5.10); RED CELL DISTRI WIDTH 17.6 % (0-14.5); WHITE BLOOD COUNT 8.7 10*3/uL (4.8-10.8)
--- NOTE | 2020-06-29 07:01 | NUR ---
APTT 69.9. NO CHANGE TO HEPARIN GTT PER POLICY.
[2020-06-29 07:46] LABS: ALBUMIN 2.4 gm/dl (3.1-4.5); CREATININE 1.71 mg/dL (0.55-1.02); POTASSIUM 5.2 mmol/L (3.5-5.1); TOTAL PROTEIN 6.9 gm/dL (6.4-8.2)
[2020-06-29 08:00] VITALS: BP 97/54
[2020-06-29 08:19] LABS: ABG BASE EXCESS 8.8 mmol/L (-2.0-2.0); ARTERIAL BLOOD GAS PH 7.319 (7.35-7.45)
[2020-06-29 09:15] LABS: PTH INTACT 276.1 pg/mL (18.5-88.0); VITAMIN D, 25-HYDROXY 46.6 ng/mL (30-100)
[2020-06-29 12:00] VITALS: BP 100/46
[2020-06-29] MEDS ORDERED: XARE15TA PO (13:23)
[2020-06-29] MEDS ORDERED: DOXYCYCLINE100 M3 PO (13:23)
--- NOTE | 2020-06-29 15:01 | NUR ---
PT ASSESSED FOR HOME OXYGNE. PT QUALIFIES AT REST SPO2 83% RA PLACED PT ON 2LNC, HR 72, RR 18, B/P 103/45 WHILE AMBULATING PT SPO2 88% ON 2LNC INCREASED FIO2 TO 3LNC SPO2 90% CONTINUED AMULATION SPO2 87-88% INCREASED FIO2 TO 4L AT REST SPO2 94% 4LNC, HR 91, RR 20, B/P 107/62 RN NOTIFIED AND NOTIFIED
[2020-06-29 16:00] VITALS: BP 141/51
--- NOTE | 2020-06-29 19:00 | NUR ---
ASSUMED CARE FOR THIS PT AT THIS TIME. PT RESTING QUIETLY IN BED. NO C/O VOICED. PT DENIES SOB. CALL LIGHT IN REACH.
[2020-06-29 20:00] VITALS: BP 118/57
--- NOTE | 2020-06-29 20:26 | NUR ---
PT STATES SHE IS HAVING A PANIC ATTACK. PT SITTING UP IN BED QUIETLY. MEDICATED W/ATIVAN PO. WILL MONITOR FOR EFFECTIVENESS. PT DOES NOT WANT BIPAP ON AT THIS TIME.
--- NOTE | 2020-06-29 21:26 | NUR ---
PT RESTING QUIETLY IN RECLINER CHAIR. NO S/S OF ANXIETY NOTED.
[2020-06-30] VITALS: BP 113/76
--- NOTE | 2020-06-30 04:00 | NUR ---
PT RESTING QUIETLY IN RECLINER CHAIR W/BLE ELEVATED. NO S/S OF RESP DISTRESS NOTED. PT WEARING BIPAP ORDERED. CALL LIGHT IN REACH.
[2020-06-30 05:55] LABS: ALBUMIN 2.4 gm/dl (3.1-4.5); CREATININE 1.67 mg/dL (0.55-1.02); POTASSIUM 4.9 mmol/L (3.5-5.1); TOTAL PROTEIN 6.7 gm/dL (6.4-8.2)
[2020-06-30 08:00] VITALS: BP 107/53
--- NOTE | 2020-06-30 08:00 | NUR ---
PT ON BIPAP THROUGH OUT THE NIGHT. ABG DRAWN WHILE ON BIPAP. PT TAKEN OFF OF BIPAP AND PLACED ON 4 NC. SPO2 93% HR 68. RESPS REGULAR AND UNLABORED.
[2020-06-30 08:01] LABS: ARTERIAL BLOOD GAS PH 7.343 (7.35-7.45)
--- NOTE | 2020-06-30 09:00 | NUR ---
CM in to see patient. She is sitting up in her bedside chair. Discussed home health care services and she is agreeable to a nurse. She states she is able to get to her bathroom as it is right off of her bedroom. She has a van cdl driver that helps with her laundry and gets her groceries. She has a CM, Abhishek, that helps with food also. She would like to have a nurse come out and check on her a couple of times just to make sure everything with the O2 is ok as she will be going home with a new O2 prescription. When provided with a list of home health care agencies she chose [facility]. When medically stable she will be discharged to home with [facility] RN services.
--- NOTE | 2020-06-30 10:32 | NUR ---
Spoke to Dr. Nye regarding there was not an order for a bipap at home just home O2. He will check with Dr. Fernandez and get back to CM.
--- NOTE | 2020-06-30 10:47 | NUR ---
STEAM TANK OPERATOR FAXED REFERRAL TO [facility].
[2020-06-30 12:00] VITALS: BP 104/49
--- NOTE | 2020-06-30 13:45 | NUR ---
DR LOWE IN, PT TO GO HOME AFTER O2 IS SET UP
--- NOTE | 2020-06-30 15:30 | NUR ---
ASSUMED CARE OF PATIENT AT THIS TIME. PATIENT STATES NO NEEDS. AWAITING O2 TANK SO PATIENT CAN BE DISCHARGED.
[2020-06-30 16:00] VITALS: BP 110/47
--- NOTE | 2020-06-30 16:20 | NUR ---
O2 ORDER/INFORMATION SENT TO MEDICAL SERVICE
--- NOTE | 2020-06-30 18:13 | NUR ---
I HAVE ATTEMPTED TO FAX HOME O2 INFORMATION TO MEDICAL SERVICES. FAX WILL NOT GO THRU. I HAVE CALLED THE COMPANY, THEY STATE THEY HAVE NOT RECEIVED FAX. RN NOTIFIED. WE WILL CONTINUE TO TRY TO FAX THE INFORMATION.
--- NOTE | 2020-06-30 19:00 | NUR ---
ASSUMED CARE FOR THIS PT AT THIS TIME. PT SLEEPING IN RECLINER CHAIR. PT DROWSY AND DIFF TO AROUSE. PT REFUSING TO WEAR BIPAP AT THIS TIME. PT STATES SHE WILL WEAR IT WHEN SHE GOES TO BED. CALL LIGHT AND PHONE IN REACH.
[2020-06-30 20:00] VITALS: BP 109/52
--- NOTE | 2020-06-30 20:20 | NUR ---
MEREDITH ALLISON PHONED AND RELAYED TO THIS NURSE THAT OXYGEN TANK WILL BE DELIVERED TO PT FRANCIS. PT NOTIFIED. PT STATES SHE HAS A RIDE HOME.
--- NOTE | 2020-06-30 22:45 | NUR ---
HEART MONITOR REMOVED. HL IN RT SHOULDER REMOVED AND LT IJ REMOVED. PRESSURE DRSG APPLIED. NO S/S OF ACTIVE BLEEDING NOTED. Discharge instructions reviewed with patient/family. Patient receptive and verbalizes understanding. Follow-up care arranged. Written instructions given to patient/family. SCRIPT FOR BIPAP GIVEN TO PT. MODE CALHOUN
== END 2020-06-30 22:45 | disposition home or self-care (01) | DRG 139 ==
LOC: ED 18:52 → 4E 06-26 00:24 → EDHOLD 06-26 00:24 → ICCU 06-26 00:24 → 5E 06-26 00:36 → ICCU 06-26 13:23 → 4E 06-27 14:11
PROVIDERS: Emergency Medicine; Internal Medicine; Internal Medicine Critical Care Medicine; Internal Medicine Nephrology; ADMIT Internal Medicine
PROC: 02HV33Z Insertion of Infusion Device into Superior Vena Cava, Percutaneous Approach (ICD-10-PCS; principal; 2020-06-26)
PROC: B548ZZA Ultrasonography of Superior Vena Cava, Guidance (ICD-10-PCS; 2020-06-26)
PROC: 5A09357 Assistance with Respiratory Ventilation, Less than 24 Consecutive Hours, Continuous Positive Airway Pressure (ICD-10-PCS; 2020-06-26)
PROC: 5A09357 Assistance with Respiratory Ventilation, Less than 24 Consecutive Hours, Continuous Positive Airway Pressure (ICD-10-PCS; 2020-06-27)
PROC: 5A09357 Assistance with Respiratory Ventilation, Less than 24 Consecutive Hours, Continuous Positive Airway Pressure (ICD-10-PCS; 2020-06-29)
PROC: 5A09357 Assistance with Respiratory Ventilation, Less than 24 Consecutive Hours, Continuous Positive Airway Pressure (ICD-10-PCS; 2020-06-30)
DX: J18.9 Pneumonia, unspecified organism (principal); J44.0 Chronic obstructive pulmonary disease with (acute) lower respiratory infection; J96.22 Acute and chronic respiratory failure with hypercapnia; J96.21 Acute and chronic respiratory failure with hypoxia; D53.9 Nutritional anemia, unspecified; G43.909 Migraine, unspecified, not intractable, without status migrainosus; N18.4 Chronic kidney disease, stage 4 (severe); N17.9 Acute kidney failure, unspecified; E43 Unspecified severe protein-calorie malnutrition; M10.9 Gout, unspecified; E11.69 Type 2 diabetes mellitus with other specified complication; E11.65 Type 2 diabetes mellitus with hyperglycemia; E11.22 Type 2 diabetes mellitus with diabetic chronic kidney disease; I50.9 Heart failure, unspecified; I13.0 Hypertensive heart and chronic kidney disease with heart failure and stage 1 through stage 4 chronic kidney disease, or unspecified chronic kidney disease; D47.3 Essential (hemorrhagic) thrombocythemia; R74.0 Nonspecific elevation of levels of transaminase and lactic acid dehydrogenase [LDH]; E83.41 Hypermagnesemia; E87.5 Hyperkalemia; I26.09 Other pulmonary embolism with acute cor pulmonale; E87.2 Acidosis; E87.3 Alkalosis; N20.0 Calculus of kidney; E66.2 Morbid (severe) obesity with alveolar hypoventilation; I25.10 Atherosclerotic heart disease of native coronary artery without angina pectoris; F50.89 Other specified eating disorder; Z86.711 Personal history of pulmonary embolism; Z88.5 Allergy status to narcotic agent; Z86.718 Personal history of other venous thrombosis and embolism; Z98.51 Tubal ligation status; Z82.49 Family history of ischemic heart disease and other diseases of the circulatory system; Z83.3 Family history of diabetes mellitus; Z87.891 Personal history of nicotine dependence; Z68.44 Body mass index [BMI] 60.0-69.9, adult; Z79.899 Other long term (current) drug therapy; Z79.01 Long term (current) use of anticoagulants

== ENCOUNTER 2021-08-29 02:09 | Emergency (ER) | payer OTHER ==
[~2021-08-29] VITALS: Ht 167.6 cm
[~2021-08-29 02:09] MED LIST changes: +B12 ACTIVE1000 MCG PO; +DOXYCYCLINE100 M3 PO; +LYRICA25 M1 PO; +TRAD5TAB1 PO; +VITAMIN D250 MC1 PO
[2021-08-29 03:17] LABS: BASO # 0.1 10*3/uL (0.0-0.1); BASO % 0.6 % (0.0-1.0); EOS # 0.5 10*3/uL (0.0-0.4); EOS % 3.6 % (1.0-4.0); HEMATOCRIT 41.9 % (37.0-47.0); LYMPH # 3.8 10*3/uL (1.3-4.4); LYMPH % 30.6 % (27.0-41.0); MEAN CELL VOLUME 101.7 fl (81.0-99.0); MEAN CORPUSCULAR HGB 29.9 pg (27.0-31.0); MEAN CORPUSCULAR HGB CONC 29.4 g/dl (33.0-37.0); MEAN PLATELET VOLUME 9.6 fl (9.6-12.3); MONO # 1.2 10*3/uL (0.1-1.0); MONO % 9.6 % (3.0-9.0); NEUT # 6.8 10*3/uL (2.3-7.9); NEUT % 55.3 % (47.0-73.0); PLATELET COUNT AUTOMATED 394 10*3/uL (130-400); RED BLOOD COUNT 4.12 10*6/uL (4.10-5.10); WHITE BLOOD COUNT 12.4 10*3/uL (4.8-10.8)
[2021-08-29 03:31] LABS: INTERNATIONAL NORM RATIO 1.1 (2.0-3.5)
[2021-08-29 03:34] LABS: ALBUMIN 2.3 gm/dl (3.1-4.5); CREATININE 1.54 mg/dL (0.55-1.02); POTASSIUM 4.4 mmol/L (3.5-5.1); TOTAL PROTEIN 7.4 gm/dL (6.4-8.2)
[2021-08-29] MEDS ORDERED: AUGMENTIN 875875 MG PO (05:18)
[2021-08-29] MEDS ORDERED: ULTRAM50 MG PO (05:18)
== END 2021-08-29 06:14 | disposition home or self-care (01) ==
LOC: ED 02:09
PROVIDERS: Hospitalist
DX: R04.0 Epistaxis (principal); Z79.899 Other long term (current) drug therapy; Z87.891 Personal history of nicotine dependence

== ENCOUNTER 2021-08-29 12:14 | Emergency (ER) | payer OTHER ==
[~2021-08-29] VITALS: Ht 170.1 cm; Wt 161.9 kg
[~2021-08-29 12:14] MED LIST changes: +AUGMENTIN 875875 MG PO; +ULTRAM50 MG PO
== END 2021-08-29 15:33 | disposition home or self-care (01) ==
LOC: ED 12:14
DX: R04.0 Epistaxis (principal); F17.200 Nicotine dependence, unspecified, uncomplicated; Z88.6 Allergy status to analgesic agent; Z79.899 Other long term (current) drug therapy

== ENCOUNTER 2022-07-01 19:06 | Inpatient (IN) | payer OTHER ==
[~2022-07-01] VITALS: Ht 167.6 cm; Wt 192.8 kg
[2022-07-01 19:10] VITALS: BP 105/53
[2022-07-01 20:04] LABS: HEMATOCRIT 30.2 % (37.0-47.0); MANUAL DIFF REFLEX YES; MEAN CELL VOLUME 90.4 fl (81.0-99.0); MEAN CORPUSCULAR HGB 28.4 pg (27.0-31.0); MEAN CORPUSCULAR HGB CONC 31.5 g/dl (33.0-37.0); PLATELET COUNT AUTOMATED 560 10*3/uL (130-400); RED BLOOD COUNT 3.34 10*6/uL (4.10-5.10); RED CELL DISTRI WIDTH 15.9 % (0-14.5); WHITE BLOOD COUNT 13.1 10*3/uL (4.8-10.8)
[2022-07-01 20:14] LABS: ACT PARTIAL THROMBO TIME 35.6 SECONDS (20.0-32.1); INTERNATIONAL NORM RATIO 1.5 (2.0-3.5)
[2022-07-01 20:20] LABS: CREATININE 1.69 mg/dL (0.55-1.02); POTASSIUM 3.9 mmol/L (3.5-5.1); TOTAL PROTEIN 5.9 gm/dL (6.4-8.2)
[2022-07-01 20:26] LABS: PLATELET SUFFICIENCY HIGH (NORMAL); TOTAL CELLS COUNTED 100 #CELLS
[2022-07-01 20:27] LABS: TARGET CELLS FEW
[2022-07-01 21:54] VITALS: BP 108/52
[2022-07-01 22:40] VITALS: BP 97/55
[2022-07-02 01:52] VITALS: BP 103/52
[2022-07-02 03:00] VITALS: BP 97/56
[2022-07-02] MEDS ORDERED: VENTOLIN 02.5 MG/3 M INH (03:55)
[2022-07-02] MEDS ORDERED: SYMB80 INH (03:55)
[2022-07-02 05:00] LABS: CREATININE 1.63 mg/dL (0.55-1.02); POTASSIUM 3.9 mmol/L (3.5-5.1)
[2022-07-02 06:05] LABS: HEMATOCRIT 25.8 % (37.0-47.0); MEAN CELL VOLUME 91.2 fl (81.0-99.0); MEAN CORPUSCULAR HGB 29.3 pg (27.0-31.0); MEAN CORPUSCULAR HGB CONC 32.2 g/dl (33.0-37.0); MEAN PLATELET VOLUME 9.8 fl (9.6-12.3); PLATELET COUNT AUTOMATED 454 10*3/uL (130-400); RED BLOOD COUNT 2.83 10*6/uL (4.10-5.10); RED CELL DISTRI WIDTH 15.9 % (0-14.5); WHITE BLOOD COUNT 12.6 10*3/uL (4.8-10.8)
[2022-07-02 06:21] LABS: MANUAL DIFF REFLEX YES
[2022-07-02 06:50] LABS: OVALOCYTES FEW; PLATELET SUFFICIENCY HIGH (NORMAL); POLYCHROMASIA SLIGHT; TARGET CELLS MODERATE; TOTAL CELLS COUNTED 100 #CELLS
[2022-07-02 07:21] LABS: BILIRUBIN Negative (Negative); BLOOD Trace-Lysed (Negative); CLARITY Clear (Clear); COLOR Yellow (Yellow); GLUCOSE Negative (Negative); KETONE Negative (Negative); LEUKO ESTERASE 2+ (Negative); NITRITE Negative (Negative); UROBILINOGEN 0.2 E.U./dl (0.0-1.0)
[2022-07-02 07:49] LABS: MUCOUS TRACE; WBC TNTC wbc/hpf (0-5)
[2022-07-02 07:55] LABS: URINE CREATININE RANDOM 89.5 mg/dL
[2022-07-02 08:00] VITALS: BP 114/56
[2022-07-02 12:00] VITALS: BP 110/60
[2022-07-02 16:00] VITALS: BP 91/55
[2022-07-02 20:00] VITALS: BP 99/52
[2022-07-03] VITALS: BP 130/51
[2022-07-03 08:00] VITALS: BP 102/54
[2022-07-03] MEDS ORDERED: REXULTI1 MG PO (09:22)
[2022-07-03 12:00] VITALS: BP 116/64
[2022-07-03 12:08] LABS: FERRITIN 55.9 ng/mL (10.0-291.0); VITAMIN D, 25-HYDROXY 65.9 ng/mL (30-100)
[2022-07-03 16:00] VITALS: BP 113/62
[2022-07-03 20:00] VITALS: BP 104/57
[2022-07-04] VITALS: BP 107/63; BP 99/55
[2022-07-04 06:23] LABS: CREATININE 1.83 mg/dL (0.55-1.02)
[2022-07-04 06:26] LABS: BASO # 0.1 10*3/uL (0.0-0.1); BASO % 0.7 % (0.0-1.0); EOS # 0.7 10*3/uL (0.0-0.4); EOS % 6.5 % (1.0-4.0); HEMATOCRIT 25.3 % (37.0-47.0); LYMPH # 2.9 10*3/uL (1.3-4.4); LYMPH % 26.4 % (27.0-41.0); MEAN CORPUSCULAR HGB 28.5 pg (27.0-31.0); MEAN CORPUSCULAR HGB CONC 31.6 g/dl (33.0-37.0); MEAN PLATELET VOLUME 9.4 fl (9.6-12.3); MONO # 1.5 10*3/uL (0.1-1.0); MONO % 13.7 % (3.0-9.0); NEUT # 5.7 10*3/uL (2.3-7.9); NEUT % 52.3 % (47.0-73.0); PLATELET COUNT AUTOMATED 492 10*3/uL (130-400); RED BLOOD COUNT 2.81 10*6/uL (4.10-5.10); RED CELL DISTRI WIDTH 15.9 % (0-14.5); WHITE BLOOD COUNT 10.8 10*3/uL (4.8-10.8)
[2022-07-04 08:00] VITALS: BP 101/48; BP 121/83
[2022-07-04] MEDS ORDERED: FERROUS FUMARA324 MG PO (11:20)
[2022-07-04] MEDS ORDERED: CEFUROXIME AXE500 MG PO (11:21)
[2022-07-04] MEDS ORDERED: DOXYCYCLINE HY100 M3 PO (11:21)
[2022-07-04 12:00] VITALS: BP 108/47
[2022-07-04 16:00] VITALS: BP 110/62
== END 2022-07-04 18:10 | disposition home health service (06) | DRG 720 ==
LOC: ED 19:06 → EDHOLD 23:00 → 4E 23:00 → EDHOLD 23:35 → 4E 07-02 00:10
PROVIDERS: Emergency Medicine; Internal Medicine Nephrology; Physical Therapist; ADMIT Internal Medicine; ATTEND Internal Medicine
DX: A41.9 Sepsis, unspecified organism (principal); E43 Unspecified severe protein-calorie malnutrition; I26.99 Other pulmonary embolism without acute cor pulmonale; I50.9 Heart failure, unspecified; L03.115 Cellulitis of right lower limb; L03.311 Cellulitis of abdominal wall; N17.9 Acute kidney failure, unspecified; N18.4 Chronic kidney disease, stage 4 (severe); J44.9 Chronic obstructive pulmonary disease, unspecified; I13.0 Hypertensive heart and chronic kidney disease with heart failure and stage 1 through stage 4 chronic kidney disease, or unspecified chronic kidney disease; E11.22 Type 2 diabetes mellitus with diabetic chronic kidney disease; M10.9 Gout, unspecified; E66.01 Morbid (severe) obesity due to excess calories; L03.314 Cellulitis of groin; R65.20 Severe sepsis without septic shock; E11.65 Type 2 diabetes mellitus with hyperglycemia; D64.9 Anemia, unspecified; D72.810 Lymphocytopenia; R74.01 Elevation of levels of liver transaminase levels; R74.8 Abnormal levels of other serum enzymes; E11.69 Type 2 diabetes mellitus with other specified complication; G43.909 Migraine, unspecified, not intractable, without status migrainosus; I87.2 Venous insufficiency (chronic) (peripheral); K92.2 Gastrointestinal hemorrhage, unspecified; K64.4 Residual hemorrhoidal skin tags; Z86.718 Personal history of other venous thrombosis and embolism; Z88.6 Allergy status to analgesic agent; Z88.1 Allergy status to other antibiotic agents; Z88.8 Allergy status to other drugs, medicaments and biological substances; Z87.891 Personal history of nicotine dependence; Z86.711 Personal history of pulmonary embolism; Z68.45 Body mass index [BMI] 70 or greater, adult; L03.116 Cellulitis of left lower limb; D75.839 Thrombocytosis, unspecified; R06.82 Tachypnea, not elsewhere classified

== ENCOUNTER 2022-07-06 14:33 | Inpatient (IN) | payer MEDICAID ==
[~2022-07-06] VITALS: Ht 162.5 cm; Wt 175.6 kg
[~2022-07-06 14:33] MED LIST changes: +CEFUROXIME AXE500 MG PO; +DOXYCYCLINE HY100 M3 PO; +REXULTI1 MG PO; +SYMB80 INH; +VENTOLIN 02.5 MG/3 M INH
[2022-07-06 14:37] VITALS: BP 105/57
[2022-07-06 15:28] LABS: BASO # 0.1 10*3/uL (0.0-0.1); BASO % 0.5 % (0.0-1.0); EOS # 0.4 10*3/uL (0.0-0.4); EOS % 4.2 % (1.0-4.0); HEMATOCRIT 28.7 % (37.0-47.0); LYMPH # 2.2 10*3/uL (1.3-4.4); LYMPH % 22.4 % (27.0-41.0); MEAN CELL VOLUME 92.6 fl (81.0-99.0); MEAN CORPUSCULAR HGB 28.7 pg (27.0-31.0); MEAN PLATELET VOLUME 9.4 fl (9.6-12.3); MONO # 1.4 10*3/uL (0.1-1.0); MONO % 14.2 % (3.0-9.0); NEUT # 5.8 10*3/uL (2.3-7.9); NEUT % 58.2 % (47.0-73.0); PLATELET COUNT AUTOMATED 395 10*3/uL (130-400); RED CELL DISTRI WIDTH 16.6 % (0-14.5)
[2022-07-06 15:47] LABS: CREATININE 1.78 mg/dL (0.55-1.02); POTASSIUM 4.4 mmol/L (3.5-5.1); TOTAL PROTEIN 5.7 gm/dL (6.4-8.2)
[2022-07-06 17:16] LABS: ACT PARTIAL THROMBO TIME 28.4 SECONDS (20.0-32.1); INTERNATIONAL NORM RATIO 1.2 (2.0-3.5)
[2022-07-06 19:19] LABS: BILIRUBIN Negative (Negative); BLOOD Negative (Negative); CLARITY Clear (Clear); COLOR Yellow (Yellow); GLUCOSE Negative (Negative); KETONE Negative (Negative); LEUKO ESTERASE Negative (Negative); NITRITE Negative (Negative); PH 5.5 (4.5-8.0); SPECIFIC GRAVITY 1.015 (1.001-1.030); UROBILINOGEN 0.2 E.U./dl (0.0-1.0)
[2022-07-06 19:32] LABS: BACTERIA 1+; WBC 0-2 wbc/hpf (0-5)
[2022-07-06 22:57] VITALS: BP 119/61
[2022-07-06 23:00] VITALS: BP 127/71
[2022-07-07 08:00] VITALS: BP 131/82
[2022-07-07 12:00] VITALS: BP 108/58
[2022-07-07 15:52] VITALS: BP 110/64
[2022-07-07 20:00] VITALS: BP 100/50
[2022-07-08] VITALS: BP 112/67
[2022-07-08 06:44] LABS: BASO # 0.1 10*3/uL (0.0-0.1); BASO % 0.7 % (0.0-1.0); EOS # 0.4 10*3/uL (0.0-0.4); EOS % 4.9 % (1.0-4.0); HEMATOCRIT 24.7 % (37.0-47.0); LYMPH # 2.6 10*3/uL (1.3-4.4); MEAN CELL VOLUME 92.5 fl (81.0-99.0); MEAN CORPUSCULAR HGB 28.5 pg (27.0-31.0); MEAN CORPUSCULAR HGB CONC 30.8 g/dl (33.0-37.0); MEAN PLATELET VOLUME 9.1 fl (9.6-12.3); MONO # 1.3 10*3/uL (0.1-1.0); MONO % 14.3 % (3.0-9.0); NEUT # 4.5 10*3/uL (2.3-7.9); NEUT % 50.4 % (47.0-73.0); PLATELET COUNT AUTOMATED 466 10*3/uL (130-400); RED BLOOD COUNT 2.67 10*6/uL (4.10-5.10); RED CELL DISTRI WIDTH 16.5 % (0-14.5)
[2022-07-08 07:01] LABS: CREATININE 1.57 mg/dL (0.55-1.02); POTASSIUM 3.6 mmol/L (3.5-5.1)
[2022-07-08 08:00] VITALS: BP 112/53
[2022-07-08 12:00] VITALS: BP 112/55
[2022-07-08 16:00] VITALS: BP 124/53
[2022-07-08 20:00] VITALS: BP 118/60
[2022-07-09] VITALS: BP 102/55
[2022-07-09 08:00] VITALS: BP 125/65
[2022-07-09 12:00] VITALS: BP 131/79
[2022-07-09 16:00] VITALS: BP 116/72
[2022-07-09 20:00] VITALS: BP 113/63
[2022-07-10] VITALS: BP 113/61
[2022-07-10 06:34] LABS: BASO # 0.1 10*3/uL (0.0-0.1); BASO % 0.8 % (0.0-1.0); EOS # 0.6 10*3/uL (0.0-0.4); HEMATOCRIT 25.7 % (37.0-47.0); LYMPH # 2.9 10*3/uL (1.3-4.4); LYMPH % 27.7 % (27.0-41.0); MEAN CELL VOLUME 95.2 fl (81.0-99.0); MEAN CORPUSCULAR HGB 28.5 pg (27.0-31.0); MEAN PLATELET VOLUME 9.1 fl (9.6-12.3); MONO # 1.5 10*3/uL (0.1-1.0); MONO % 14.5 % (3.0-9.0); NEUT # 5.2 10*3/uL (2.3-7.9); NEUT % 50.3 % (47.0-73.0); NUCLEATED RED BLOOD CELL 0.2 % (0.0-0.0); PLATELET COUNT AUTOMATED 489 10*3/uL (130-400); WHITE BLOOD COUNT 10.3 10*3/uL (4.8-10.8)
[2022-07-10 06:51] LABS: POTASSIUM 3.7 mmol/L (3.5-5.1)
[2022-07-10 06:58] LABS: CREATININE 1.56 mg/dL (0.55-1.02); TOTAL PROTEIN 5.4 gm/dL (6.4-8.2)
[2022-07-10 08:00] VITALS: BP 128/64
[2022-07-10 12:00] VITALS: BP 85/60
[2022-07-10 16:00] VITALS: BP 125/54
[2022-07-10 20:00] VITALS: BP 108/57
[2022-07-11] VITALS: BP 98/51
[2022-07-11 08:00] VITALS: BP 90/52
[2022-07-11 12:00] VITALS: BP 120/75
[2022-07-11 12:30] LABS: CREATININE 1.73 mg/dL (0.55-1.02); POTASSIUM 3.6 mmol/L (3.5-5.1); TOTAL PROTEIN 5.5 gm/dL (6.4-8.2)
[2022-07-11 16:00] VITALS: BP 94/53
[2022-07-11 20:00] VITALS: BP 109/62
[2022-07-12] VITALS: BP 110/52
[2022-07-12 06:28] LABS: HEMATOCRIT 21.7 % (37.0-47.0); MEAN CELL VOLUME 92.7 fl (81.0-99.0); MEAN CORPUSCULAR HGB 29.1 pg (27.0-31.0); MEAN CORPUSCULAR HGB CONC 31.3 g/dl (33.0-37.0); MEAN PLATELET VOLUME 8.9 fl (9.6-12.3); PLATELET COUNT AUTOMATED 434 10*3/uL (130-400); RED BLOOD COUNT 2.34 10*6/uL (4.10-5.10); RED CELL DISTRI WIDTH 16.4 % (0-14.5); WHITE BLOOD COUNT 9.8 10*3/uL (4.8-10.8)
[2022-07-12 06:33] LABS: MANUAL DIFF REFLEX YES
[2022-07-12 06:54] LABS: CREATININE 1.78 mg/dL (0.55-1.02); POTASSIUM 3.4 mmol/L (3.5-5.1)
[2022-07-12 07:36] LABS: ATYPICAL LYMPHS 1 % (0-0); BASOPHILS 2 % (0-1); OVALOCYTES FEW; PLATELET SUFFICIENCY HIGH (NORMAL); POLYCHROMASIA SLIGHT; TARGET CELLS FEW; TOTAL CELLS COUNTED 100 #CELLS
[2022-07-12 08:00] VITALS: BP 115/53
[2022-07-12 12:00] VITALS: BP 100/56
[2022-07-12 16:32] VITALS: BP 102/51
[2022-07-12 20:00] VITALS: BP 111/56
[2022-07-13] VITALS (10 sets, daily range): BP systolic 87–117; BP diastolic 45–58
[2022-07-13 07:07] LABS: HEMATOCRIT 22.3 % (37.0-47.0); MEAN CELL VOLUME 94.5 fl (81.0-99.0); MEAN CORPUSCULAR HGB 28.8 pg (27.0-31.0); MEAN CORPUSCULAR HGB CONC 30.5 g/dl (33.0-37.0); PLATELET COUNT AUTOMATED 446 10*3/uL (130-400); RED BLOOD COUNT 2.36 10*6/uL (4.10-5.10); RED CELL DISTRI WIDTH 16.7 % (0-14.5); WHITE BLOOD COUNT 10.4 10*3/uL (4.8-10.8)
[2022-07-13 07:16] LABS: MANUAL DIFF REFLEX YES
[2022-07-13 07:22] LABS: CREATININE 1.84 mg/dL (0.55-1.02); POTASSIUM 3.2 mmol/L (3.5-5.1); TOTAL PROTEIN 5.6 gm/dL (6.4-8.2)
[2022-07-13 07:40] LABS: BASOPHILS 1 % (0-1); PLATELET SUFFICIENCY HIGH (NORMAL); TOTAL CELLS COUNTED 100 #CELLS
[2022-07-13 07:41] LABS: OVALOCYTES MODERATE; POLYCHROMASIA SLIGHT; SCHISTOCYTES FEW
[2022-07-13 09:30] LABS: IRON 12 ug/dL (50-170)
[2022-07-14] VITALS: BP 107/50
[2022-07-14 06:24] LABS: HEMATOCRIT 23.1 % (37.0-47.0); MEAN CELL VOLUME 93.9 fl (81.0-99.0); MEAN CORPUSCULAR HGB 29.3 pg (27.0-31.0); MEAN CORPUSCULAR HGB CONC 31.2 g/dl (33.0-37.0); MEAN PLATELET VOLUME 8.7 fl (9.6-12.3); PLATELET COUNT AUTOMATED 414 10*3/uL (130-400); RED BLOOD COUNT 2.46 10*6/uL (4.10-5.10); RED CELL DISTRI WIDTH 16.4 % (0-14.5); WHITE BLOOD COUNT 10.5 10*3/uL (4.8-10.8)
[2022-07-14 06:28] LABS: MANUAL DIFF REFLEX YES
[2022-07-14 06:37] LABS: CREATININE 1.93 mg/dL (0.55-1.02); POTASSIUM 3.4 mmol/L (3.5-5.1)
[2022-07-14 07:13] LABS: BASOPHILS 1 % (0-1); PLATELET SUFFICIENCY HIGH (NORMAL); POLYCHROMASIA SLIGHT; SCHISTOCYTES FEW; STOMATOCYTE FEW; TOTAL CELLS COUNTED 100 #CELLS
[2022-07-14 07:14] LABS: TARGET CELLS FEW
[2022-07-14 08:00] VITALS: BP 109/62
[2022-07-14 12:00] VITALS: BP 98/50
[2022-07-14 15:57] VITALS: BP 102/52
[2022-07-14] MEDS ORDERED: ALDACTONE25 MG PO (16:57)
[2022-07-14] MEDS ORDERED: LEVOFLOXACIN500 MG PO (17:08)
[2022-07-14 20:00] VITALS: BP 96/62
[2022-07-15] VITALS: BP 107/57
[2022-07-15 08:00] VITALS: BP 111/58
[2022-07-15 12:00] VITALS: BP 95/54
[2022-07-15 12:11] LABS: CREATININE 2.2 mg/dL (0.55-1.02); POTASSIUM 3.9 mmol/L (3.5-5.1)
[2022-07-15 16:00] VITALS: BP 100/48
[2022-07-15 20:00] VITALS: BP 82/47
[2022-07-15 20:21] VITALS: BP 110/58
[2022-07-16] VITALS: BP 94/42
[2022-07-16 06:31] LABS: CREATININE 2.49 mg/dL (0.55-1.02); POTASSIUM 3.8 mmol/L (3.5-5.1); TOTAL PROTEIN 5.6 gm/dL (6.4-8.2)
[2022-07-16 08:00] VITALS: BP 92/52
[2022-07-16 10:08] LABS: HEMATOCRIT 23.3 % (37.0-47.0); MANUAL DIFF REFLEX YES; MEAN CELL VOLUME 96.3 fl (81.0-99.0); MEAN CORPUSCULAR HGB 28.9 pg (27.0-31.0); MEAN PLATELET VOLUME 9.5 fl (9.6-12.3); PLATELET COUNT AUTOMATED 498 10*3/uL (130-400); RED BLOOD COUNT 2.42 10*6/uL (4.10-5.10); RED CELL DISTRI WIDTH 16.8 % (0-14.5); WHITE BLOOD COUNT 9.9 10*3/uL (4.8-10.8)
[2022-07-16 10:28] LABS: PLATELET SUFFICIENCY HIGH (NORMAL); POLYCHROMASIA SLIGHT; TARGET CELLS FEW; TOTAL CELLS COUNTED 100 #CELLS; TOXIC GRANULATION SLIGHT
[2022-07-16 12:00] VITALS: BP 99/59
[2022-07-16 16:00] VITALS: BP 83/43
[2022-07-16 16:20] VITALS: BP 86/68
== END 2022-07-16 20:54 | DRG 194 ==
LOC: ED 14:33 → 5E 18:20 → EDHOLD 18:20 → 5E 20:23
PROVIDERS: Emergency Medicine; Internal Medicine Nephrology; ADMIT Internal Medicine; ATTEND Internal Medicine
PROC: 30233N1 Transfusion of Nonautologous Red Blood Cells into Peripheral Vein, Percutaneous Approach (ICD-10-PCS; principal; 2022-07-13)
DX: I13.0 Hypertensive heart and chronic kidney disease with heart failure and stage 1 through stage 4 chronic kidney disease, or unspecified chronic kidney disease (principal); I26.99 Other pulmonary embolism without acute cor pulmonale; E11.22 Type 2 diabetes mellitus with diabetic chronic kidney disease; N18.4 Chronic kidney disease, stage 4 (severe); K64.4 Residual hemorrhoidal skin tags; K74.60 Unspecified cirrhosis of liver; K80.20 Calculus of gallbladder without cholecystitis without obstruction; E43 Unspecified severe protein-calorie malnutrition; Z20.822 Contact with and (suspected) exposure to COVID-19; M10.9 Gout, unspecified; E66.01 Morbid (severe) obesity due to excess calories; E88.09 Other disorders of plasma-protein metabolism, not elsewhere classified; R18.8 Other ascites; G43.909 Migraine, unspecified, not intractable, without status migrainosus; J44.9 Chronic obstructive pulmonary disease, unspecified; L03.116 Cellulitis of left lower limb; D64.9 Anemia, unspecified; G47.33 Obstructive sleep apnea (adult) (pediatric); S81.802A Unspecified open wound, left lower leg, initial encounter; R65.11 Systemic inflammatory response syndrome (SIRS) of non-infectious origin with acute organ dysfunction; S81.801A Unspecified open wound, right lower leg, initial encounter; I50.31 Acute diastolic (congestive) heart failure; B96.7 Clostridium perfringens [C. perfringens] as the cause of diseases classified elsewhere; X58.XXXA Exposure to other specified factors, initial encounter; Y93.89 Activity, other specified; Y92.89 Other specified places as the place of occurrence of the external cause; Y99.8 Other external cause status; Z98.51 Tubal ligation status; Z88.6 Allergy status to analgesic agent; Z88.1 Allergy status to other antibiotic agents; Z88.8 Allergy status to other drugs, medicaments and biological substances; Z86.718 Personal history of other venous thrombosis and embolism; Z87.891 Personal history of nicotine dependence; Z68.44 Body mass index [BMI] 60.0-69.9, adult

== ENCOUNTER 2022-07-17 02:42 | Emergency (ER) | payer MEDICAID ==
[~2022-07-17 02:42] MED LIST changes: +ALDACTONE25 MG PO; +LEVOFLOXACIN500 MG PO
== END 2022-07-17 09:50 | disposition left against medical advice (07) ==
LOC: ED 02:42
DX: M62.81 Muscle weakness (generalized) (principal); Z87.891 Personal history of nicotine dependence; Z98.890 Other specified postprocedural states; Z79.899 Other long term (current) drug therapy; Z88.6 Allergy status to analgesic agent; Z88.1 Allergy status to other antibiotic agents; Z88.5 Allergy status to narcotic agent

== ENCOUNTER 2022-07-17 11:58 | Inpatient (IN) | payer MEDICAID ==
[~2022-07-17] VITALS: Ht 160 cm; Wt 176.9 kg
[2022-07-17 14:24] LABS: HEMATOCRIT 25.2 % (37.0-47.0); MEAN CELL VOLUME 93.3 fl (81.0-99.0); MEAN CORPUSCULAR HGB 28.5 pg (27.0-31.0); MEAN CORPUSCULAR HGB CONC 30.6 g/dl (33.0-37.0); MEAN PLATELET VOLUME 9.1 fl (9.6-12.3); PLATELET COUNT AUTOMATED 514 10*3/uL (130-400); RED CELL DISTRI WIDTH 16.8 % (0-14.5); WHITE BLOOD COUNT 11.7 10*3/uL (4.8-10.8)
[2022-07-17 14:25] LABS: MANUAL DIFF REFLEX YES
[2022-07-17 14:39] LABS: ACT PARTIAL THROMBO TIME 31.1 SECONDS (20.0-32.1); INTERNATIONAL NORM RATIO 1.4 (2.0-3.5)
[2022-07-17 14:42] LABS: CREATININE 2.94 mg/dL (0.55-1.02); POTASSIUM 3.5 mmol/L (3.5-5.1); TOTAL PROTEIN 5.9 gm/dL (6.4-8.2)
[2022-07-17 14:57] LABS: POLYCHROMASIA SLIGHT; STOMATOCYTE FEW; TOTAL CELLS COUNTED 100 #CELLS
[2022-07-17 14:58] LABS: OVALOCYTES FEW; PLATELET SUFFICIENCY HIGH (NORMAL)
[2022-07-17 15:26] VITALS: BP 118/60
[2022-07-17 18:00] VITALS: BP 149/90
[2022-07-17 20:00] VITALS: BP 107/54
[2022-07-18] VITALS (17 sets, daily range): BP systolic 89–152; BP diastolic 51–89
[2022-07-18 06:16] LABS: HEMATOCRIT 22.1 % (37.0-47.0); MEAN CELL VOLUME 90.9 fl (81.0-99.0); MEAN CORPUSCULAR HGB 28.8 pg (27.0-31.0); MEAN CORPUSCULAR HGB CONC 31.7 g/dl (33.0-37.0); MEAN PLATELET VOLUME 9.4 fl (9.6-12.3); PLATELET COUNT AUTOMATED 476 10*3/uL (130-400); RED BLOOD COUNT 2.43 10*6/uL (4.10-5.10); RED CELL DISTRI WIDTH 16.7 % (0-14.5); WHITE BLOOD COUNT 9.8 10*3/uL (4.8-10.8)
[2022-07-18 06:20] LABS: MANUAL DIFF REFLEX YES
[2022-07-18 06:33] LABS: CREATININE 3.14 mg/dL (0.55-1.02); POTASSIUM 3.4 mmol/L (3.5-5.1)
[2022-07-18 06:58] LABS: BASOPHILS 1 % (0-1); PLATELET SUFFICIENCY HIGH (NORMAL); TARGET CELLS MODERATE; TOTAL CELLS COUNTED 100 #CELLS
[2022-07-18 06:59] LABS: OVALOCYTES FEW; POLYCHROMASIA SLIGHT; ROULEAUX SLIGHT
[2022-07-18 13:59] LABS: HEMATOCRIT 25.2 % (37.0-47.0); MEAN CELL VOLUME 91.3 fl (81.0-99.0); MEAN CORPUSCULAR HGB CONC 31.7 g/dl (33.0-37.0); MEAN PLATELET VOLUME 9.3 fl (9.6-12.3); PLATELET COUNT AUTOMATED 452 10*3/uL (130-400); RED BLOOD COUNT 2.76 10*6/uL (4.10-5.10); RED CELL DISTRI WIDTH 16.7 % (0-14.5); WHITE BLOOD COUNT 9.8 10*3/uL (4.8-10.8)
[2022-07-18 14:19] LABS: MANUAL DIFF REFLEX YES
[2022-07-18 14:40] LABS: PLATELET SUFFICIENCY HIGH (NORMAL); TOTAL CELLS COUNTED 100 #CELLS
[2022-07-18 14:41] LABS: POLYCHROMASIA SLIGHT
[2022-07-18 14:43] LABS: OVALOCYTES FEW; STOMATOCYTE FEW
[2022-07-18 14:44] LABS: MICROCYTOSIS SLIGHT
[2022-07-18 19:08] LABS: BILIRUBIN Negative (Negative); BLOOD 1+ (Negative); CLARITY Cloudy (Clear); COLOR Yellow (Yellow); GLUCOSE Negative (Negative); KETONE Negative (Negative); LEUKO ESTERASE 2+ (Negative); NITRITE Negative (Negative); SPECIFIC GRAVITY 1.015 (1.001-1.030)
[2022-07-18 19:19] LABS: BACTERIA 2+; WBC 21-30 wbc/hpf (0-5); YEAST 2+
[2022-07-19] VITALS: BP 87/58
[2022-07-19 04:00] VITALS: BP 103/58
[2022-07-19 06:03] LABS: CREATININE 3.3 mg/dL (0.55-1.02); POTASSIUM 3.8 mmol/L (3.5-5.1); TOTAL PROTEIN 5.8 gm/dL (6.4-8.2)
[2022-07-19 06:14] LABS: BASO % 0.3 % (0.0-1.0); EOS # 0.1 10*3/uL (0.0-0.4); EOS % 0.5 % (1.0-4.0); HEMATOCRIT 26.5 % (37.0-47.0); LYMPH # 2.1 10*3/uL (1.3-4.4); LYMPH % 20.9 % (27.0-41.0); MEAN CORPUSCULAR HGB 29.3 pg (27.0-31.0); MEAN CORPUSCULAR HGB CONC 29.8 g/dl (33.0-37.0); MEAN PLATELET VOLUME 9.8 fl (9.6-12.3); MONO # 1.4 10*3/uL (0.1-1.0); MONO % 14.1 % (3.0-9.0); NEUT # 6.3 10*3/uL (2.3-7.9); NEUT % 63.8 % (47.0-73.0); PLATELET COUNT AUTOMATED 376 10*3/uL (130-400); RED CELL DISTRI WIDTH 17.4 % (0-14.5); WHITE BLOOD COUNT 9.9 10*3/uL (4.8-10.8)
[2022-07-19 06:49] LABS: MEAN CELL VOLUME 98.1 fl (81.0-99.0)
[2022-07-19 08:00] VITALS: BP 96/58
[2022-07-19 12:00] VITALS: BP 102/62
[2022-07-19 16:00] VITALS: BP 106/61
[2022-07-19 20:00] VITALS: BP 102/63
[2022-07-20] VITALS: BP 113/60
[2022-07-20 06:00] LABS: CREATININE 3.56 mg/dL (0.55-1.02); POTASSIUM 3.5 mmol/L (3.5-5.1); TOTAL PROTEIN 5.8 gm/dL (6.4-8.2)
[2022-07-20 06:50] LABS: HEMATOCRIT 25.9 % (37.0-47.0); MEAN CORPUSCULAR HGB 29.3 pg (27.0-31.0); MEAN CORPUSCULAR HGB CONC 30.9 g/dl (33.0-37.0); MEAN PLATELET VOLUME 9.9 fl (9.6-12.3); PLATELET COUNT AUTOMATED 431 10*3/uL (130-400); RED BLOOD COUNT 2.73 10*6/uL (4.10-5.10); RED CELL DISTRI WIDTH 17.3 % (0-14.5); WHITE BLOOD COUNT 12.2 10*3/uL (4.8-10.8)
[2022-07-20 06:57] LABS: MANUAL DIFF REFLEX YES; MEAN CELL VOLUME 94.9 fl (81.0-99.0)
[2022-07-20 07:02] LABS: ATYPICAL LYMPHS 2 % (0-0); POLYCHROMASIA SLIGHT; TOTAL CELLS COUNTED 100 #CELLS
[2022-07-20 07:03] LABS: OVALOCYTES FEW; PLATELET SUFFICIENCY HIGH (NORMAL); ROULEAUX SLIGHT; SCHISTOCYTES FEW; TARGET CELLS FEW
[2022-07-20 08:00] VITALS: BP 104/50
[2022-07-20 12:00] VITALS: BP 102/54
[2022-07-20 16:00] VITALS: BP 96/56
[2022-07-20 20:00] VITALS: BP 107/67
[2022-07-21] VITALS: BP 112/61
[2022-07-21 04:00] VITALS: BP 109/61
[2022-07-21 05:25] LABS: CREATININE 3.78 mg/dL (0.55-1.02); POTASSIUM 3.3 mmol/L (3.5-5.1)
[2022-07-21 06:12] LABS: HEMATOCRIT 27.3 % (37.0-47.0); MEAN CELL VOLUME 96.5 fl (81.0-99.0); MEAN PLATELET VOLUME 9.8 fl (9.6-12.3); PLATELET COUNT AUTOMATED 391 10*3/uL (130-400); RED BLOOD COUNT 2.83 10*6/uL (4.10-5.10); RED CELL DISTRI WIDTH 17.2 % (0-14.5); WHITE BLOOD COUNT 12.3 10*3/uL (4.8-10.8)
[2022-07-21 06:15] LABS: MANUAL DIFF REFLEX YES
[2022-07-21 06:49] LABS: ATYPICAL LYMPHS 1 % (0-0); OVALOCYTES FEW; PLATELET SUFFICIENCY NORMAL (NORMAL); POLYCHROMASIA SLIGHT; TARGET CELLS FEW; TOTAL CELLS COUNTED 100 #CELLS; TOXIC GRANULATION SLIGHT
[2022-07-21 06:50] LABS: ROULEAUX SLIGHT
[2022-07-21 08:00] VITALS: BP 100/60
[2022-07-21 12:00] VITALS: BP 105/63
[2022-07-21 16:00] VITALS: BP 101/62
[2022-07-21 20:00] VITALS: BP 94/70
[2022-07-22] VITALS (7 sets, daily range): BP systolic 89–108; BP diastolic 39–61
[2022-07-22 06:30] LABS: HEMATOCRIT 28.1 % (37.0-47.0); MEAN CELL VOLUME 96.9 fl (81.0-99.0); MEAN CORPUSCULAR HGB 29.3 pg (27.0-31.0); MEAN CORPUSCULAR HGB CONC 30.2 g/dl (33.0-37.0); MEAN PLATELET VOLUME 10.5 fl (9.6-12.3); PLATELET COUNT AUTOMATED 299 10*3/uL (130-400); RED CELL DISTRI WIDTH 17.5 % (0-14.5); WHITE BLOOD COUNT 12.7 10*3/uL (4.8-10.8)
[2022-07-22 06:31] LABS: CREATININE 3.99 mg/dL (0.55-1.02); POTASSIUM 3.7 mmol/L (3.5-5.1)
[2022-07-22 06:49] LABS: MANUAL DIFF REFLEX YES
[2022-07-22 07:19] LABS: ATYPICAL LYMPHS 1 % (0-0); BASOPHILS 2 % (0-1); PLATELET SUFFICIENCY NORMAL (NORMAL); POLYCHROMASIA SLIGHT; TARGET CELLS MODERATE; TOTAL CELLS COUNTED 100 #CELLS; TOXIC GRANULATION SLIGHT
[2022-07-22 13:47] LABS: URINE CHLORIDE, RANDOM < 10 mmol/L
[2022-07-22 13:50] LABS: BACTERIA 2+; RBC 41-50 rbc/hpf (0-2); WBC TNTC wbc/hpf (0-5); YEAST 4+
[2022-07-23] VITALS (52 sets, daily range): BP systolic 77–122; BP diastolic 37–67
[2022-07-23 06:50] LABS: HEMATOCRIT 27.4 % (37.0-47.0); MEAN CELL VOLUME 95.1 fl (81.0-99.0); MEAN CORPUSCULAR HGB 28.8 pg (27.0-31.0); MEAN CORPUSCULAR HGB CONC 30.3 g/dl (33.0-37.0); MEAN PLATELET VOLUME 9.8 fl (9.6-12.3); PLATELET COUNT AUTOMATED 337 10*3/uL (130-400); RED BLOOD COUNT 2.88 10*6/uL (4.10-5.10); RED CELL DISTRI WIDTH 17.6 % (0-14.5); WHITE BLOOD COUNT 13.3 10*3/uL (4.8-10.8)
[2022-07-23 06:53] LABS: MANUAL DIFF REFLEX YES
[2022-07-23 07:06] LABS: CREATININE 4.14 mg/dL (0.55-1.02); POTASSIUM 3.7 mmol/L (3.5-5.1); TOTAL PROTEIN 5.2 gm/dL (6.4-8.2)
[2022-07-23 07:56] LABS: TOTAL CELLS COUNTED 100 #CELLS
[2022-07-23 07:57] LABS: PLATELET SUFFICIENCY NORMAL (NORMAL); ROULEAUX SLIGHT
[2022-07-24] VITALS (96 sets, daily range): BP systolic 78–126; BP diastolic 34–79
[2022-07-24 09:20] LABS: ABG BASE EXCESS 0.5 mmol/L (-2.0-2.0); ARTERIAL BLOOD GAS PH 7.255 (7.35-7.45); ARTERIAL BLOOD GAS PO2 83.2 (80-90)
[2022-07-24 10:33] LABS: HEMATOCRIT 28.8 % (37.0-47.0); MEAN CELL VOLUME 96.6 fl (81.0-99.0); MEAN CORPUSCULAR HGB 28.9 pg (27.0-31.0); MEAN CORPUSCULAR HGB CONC 29.9 g/dl (33.0-37.0); MEAN PLATELET VOLUME 9.9 fl (9.6-12.3); PLATELET COUNT AUTOMATED 320 10*3/uL (130-400); RED BLOOD COUNT 2.98 10*6/uL (4.10-5.10); RED CELL DISTRI WIDTH 17.9 % (0-14.5)
[2022-07-24 10:34] LABS: MANUAL DIFF REFLEX YES
[2022-07-24 10:50] LABS: CREATININE 4.25 mg/dL (0.55-1.02); POTASSIUM 3.7 mmol/L (3.5-5.1); TOTAL PROTEIN 5.5 gm/dL (6.4-8.2)
[2022-07-24 10:58] LABS: ATYPICAL LYMPHS 1 % (0-0); BASOPHILS 2 % (0-1); TOTAL CELLS COUNTED 100 #CELLS
[2022-07-24 11:01] LABS: POLYCHROMASIA SLIGHT; ROULEAUX SLIGHT; TARGET CELLS MODERATE
[2022-07-24 11:02] LABS: OVALOCYTES FEW; PLATELET SUFFICIENCY NORMAL (NORMAL)
[2022-07-25] VITALS (94 sets, daily range): BP systolic 81–127; BP diastolic 32–92
[2022-07-25 03:40] LABS: HEMATOCRIT 26.1 % (37.0-47.0); MEAN CELL VOLUME 95.3 fl (81.0-99.0); MEAN CORPUSCULAR HGB 29.2 pg (27.0-31.0); MEAN CORPUSCULAR HGB CONC 30.7 g/dl (33.0-37.0); MEAN PLATELET VOLUME 10.3 fl (9.6-12.3); PLATELET COUNT AUTOMATED 300 10*3/uL (130-400); RED BLOOD COUNT 2.74 10*6/uL (4.10-5.10); RED CELL DISTRI WIDTH 17.9 % (0-14.5)
[2022-07-25 03:43] LABS: MANUAL DIFF REFLEX YES
[2022-07-25 03:57] LABS: CREATININE 4.24 mg/dL (0.55-1.02); POTASSIUM 3.6 mmol/L (3.5-5.1); TOTAL PROTEIN 5.5 gm/dL (6.4-8.2)
[2022-07-25 04:09] LABS: PLATELET SUFFICIENCY NORMAL (NORMAL); TARGET CELLS FEW; TOTAL CELLS COUNTED 100 #CELLS
[2022-07-26] VITALS (96 sets, daily range): BP systolic 83–129; BP diastolic 31–82
[2022-07-26 12:59] LABS: HEMATOCRIT 25.9 % (37.0-47.0); MEAN CELL VOLUME 94.9 fl (81.0-99.0); MEAN CORPUSCULAR HGB 29.3 pg (27.0-31.0); MEAN CORPUSCULAR HGB CONC 30.9 g/dl (33.0-37.0); MEAN PLATELET VOLUME 10.2 fl (9.6-12.3); PLATELET COUNT AUTOMATED 288 10*3/uL (130-400); RED BLOOD COUNT 2.73 10*6/uL (4.10-5.10); RED CELL DISTRI WIDTH 18.5 % (0-14.5)
[2022-07-26 13:07] LABS: MANUAL DIFF REFLEX YES
[2022-07-26 13:14] LABS: CREATININE 4.32 mg/dL (0.55-1.02); POTASSIUM 3.6 mmol/L (3.5-5.1); TOTAL PROTEIN 6.1 gm/dL (6.4-8.2)
[2022-07-26 13:21] LABS: BASOPHILS 1 % (0-1); PLATELET SUFFICIENCY NORMAL (NORMAL); STOMATOCYTE FEW; TOTAL CELLS COUNTED 100 #CELLS
[2022-07-26 16:12] LABS: BILIRUBIN Negative (Negative); BLOOD 3+ (Negative); CLARITY Turbid (Clear); COLOR Yellow (Yellow); GLUCOSE Negative (Negative); KETONE Negative (Negative); LEUKO ESTERASE 3+ (Negative); NITRITE Negative (Negative); SPECIFIC GRAVITY 1.015 (1.001-1.030); UROBILINOGEN 0.2 E.U./dl (0.0-1.0)
[2022-07-26 16:22] LABS: BACTERIA 3+; RBC TNTC rbc/hpf (0-2); WBC TNTC wbc/hpf (0-5); YEAST 4+
[2022-07-26 23:06] LABS: ABG BASE EXCESS 0.8 mmol/L (-2.0-2.0); ARTERIAL BLOOD GAS PH 7.212 (7.35-7.45); ARTERIAL BLOOD GAS PO2 81.9 (80-90)
[2022-07-27] VITALS (96 sets, daily range): BP systolic 85–120; BP diastolic 28–61
[2022-07-27 08:19] LABS: ABG BASE EXCESS 4.7 mmol/L (-2.0-2.0); ARTERIAL BLOOD GAS PH 7.245 (7.35-7.45); ARTERIAL BLOOD GAS PO2 63.7 (80-90)
[2022-07-28] VITALS (92 sets, daily range): BP systolic 82–125; BP diastolic 14–82
[2022-07-29] VITALS (76 sets, daily range): BP systolic 77–117; BP diastolic 23–61
[2022-07-29 05:49] LABS: CREATININE 4.93 mg/dL (0.55-1.02); POTASSIUM 3.8 mmol/L (3.5-5.1)
[2022-07-29 06:22] LABS: HEMATOCRIT 27.2 % (37.0-47.0); MEAN CELL VOLUME 97.1 fl (81.0-99.0); MEAN CORPUSCULAR HGB 28.9 pg (27.0-31.0); MEAN CORPUSCULAR HGB CONC 29.8 g/dl (33.0-37.0); MEAN PLATELET VOLUME 10.3 fl (9.6-12.3); NUCLEATED RED BLOOD CELL 0.2 % (0.0-0.0); PLATELET COUNT AUTOMATED 329 10*3/uL (130-400); WHITE BLOOD COUNT 13.8 10*3/uL (4.8-10.8)
[2022-07-29 06:26] LABS: MANUAL DIFF REFLEX YES
[2022-07-29 07:28] LABS: BASOPHILS 1 % (0-1); PLATELET SUFFICIENCY NORMAL (NORMAL); TOTAL CELLS COUNTED 100 #CELLS
[2022-07-29 07:29] LABS: BURR CELLS FEW; POLYCHROMASIA SLIGHT; TARGET CELLS FEW
== END 2022-07-29 21:19 | disposition hospice, inpatient (51) | DRG 253 ==
LOC: ED 11:58 → ICCU 15:19 → EDHOLD 15:19 → 5E 17:25 → ICCU 07-18 08:05 → 4E 07-22 13:31 → ICCU 07-23 08:20
PROVIDERS: Internal Medicine; Internal Medicine Critical Care Medicine; Internal Medicine Infectious Disease; Internal Medicine Nephrology; Physician Assistant; ADMIT Internal Medicine; ATTEND Internal Medicine
PROC: 30233N1 Transfusion of Nonautologous Red Blood Cells into Peripheral Vein, Percutaneous Approach (ICD-10-PCS; principal; 2022-07-18)
PROC: 02HV33Z Insertion of Infusion Device into Superior Vena Cava, Percutaneous Approach (ICD-10-PCS; 2022-07-23)
PROC: B548ZZA Ultrasonography of Superior Vena Cava, Guidance (ICD-10-PCS; 2022-07-23)
PROC: 5A0935A Assistance with Respiratory Ventilation, Less than 24 Consecutive Hours, High Flow/Velocity Cannula (ICD-10-PCS; 2022-07-26)
PROC: 5A0935A Assistance with Respiratory Ventilation, Less than 24 Consecutive Hours, High Flow/Velocity Cannula (ICD-10-PCS; 2022-07-27)
PROC: 5A09357 Assistance with Respiratory Ventilation, Less than 24 Consecutive Hours, Continuous Positive Airway Pressure (ICD-10-PCS; 2022-07-27)
PROC: 5A0935A Assistance with Respiratory Ventilation, Less than 24 Consecutive Hours, High Flow/Velocity Cannula (ICD-10-PCS; 2022-07-28)
DX: K92.2 Gastrointestinal hemorrhage, unspecified (principal); J96.21 Acute and chronic respiratory failure with hypoxia; N17.0 Acute kidney failure with tubular necrosis; K80.20 Calculus of gallbladder without cholecystitis without obstruction; K74.60 Unspecified cirrhosis of liver; E43 Unspecified severe protein-calorie malnutrition; K72.90 Hepatic failure, unspecified without coma; I47.2 Ventricular tachycardia; Z66 Do not resuscitate; J44.9 Chronic obstructive pulmonary disease, unspecified; R18.8 Other ascites; E88.09 Other disorders of plasma-protein metabolism, not elsewhere classified; E72.20 Disorder of urea cycle metabolism, unspecified; I26.99 Other pulmonary embolism without acute cor pulmonale; K64.4 Residual hemorrhoidal skin tags; G43.909 Migraine, unspecified, not intractable, without status migrainosus; L89.226 Pressure-induced deep tissue damage of left hip; L89.326 Pressure-induced deep tissue damage of left buttock; E87.6 Hypokalemia; D64.9 Anemia, unspecified; I95.9 Hypotension, unspecified; E66.01 Morbid (severe) obesity due to excess calories; I47.1 Supraventricular tachycardia; N18.30 Chronic kidney disease, stage 3 unspecified; N39.0 Urinary tract infection, site not specified; I48.0 Paroxysmal atrial fibrillation; I50.32 Chronic diastolic (congestive) heart failure; I13.0 Hypertensive heart and chronic kidney disease with heart failure and stage 1 through stage 4 chronic kidney disease, or unspecified chronic kidney disease; E11.22 Type 2 diabetes mellitus with diabetic chronic kidney disease; J96.22 Acute and chronic respiratory failure with hypercapnia; Z88.8 Allergy status to other drugs, medicaments and biological substances; Z95.5 Presence of coronary angioplasty implant and graft; Z87.891 Personal history of nicotine dependence; Z51.5 Encounter for palliative care; Z86.718 Personal history of other venous thrombosis and embolism; Z86.711 Personal history of pulmonary embolism; Z88.6 Allergy status to analgesic agent; Z88.1 Allergy status to other antibiotic agents; Z98.51 Tubal ligation status; Z83.3 Family history of diabetes mellitus; Z82.49 Family history of ischemic heart disease and other diseases of the circulatory system; Z68.44 Body mass index [BMI] 60.0-69.9, adult

== ENCOUNTER 2022-07-29 21:26 | Inpatient (IN) | payer OTHER, MEDICAID ==
[~2022-07-29] VITALS: Ht 160 cm; Wt 176.9 kg
[2022-07-29 22:00] VITALS: BP 85/47
[2022-07-30] VITALS: BP 80/44
== END 2022-07-30 10:46 | DRG 441 ==
LOC: ICCU 21:26
PROVIDERS: ADMIT Internal Medicine; ATTEND Internal Medicine
PROC: 5A0935A Assistance with Respiratory Ventilation, Less than 24 Consecutive Hours, High Flow/Velocity Cannula (ICD-10-PCS; principal; 2022-07-29)
DX: K72.90 Hepatic failure, unspecified without coma (principal); N17.0 Acute kidney failure with tubular necrosis; I50.30 Unspecified diastolic (congestive) heart failure; K74.60 Unspecified cirrhosis of liver; Z66 Do not resuscitate; Z51.5 Encounter for palliative care